=== PATIENT | male | born 1950 | race Caucasian/White ===

== ENCOUNTER 2018-01-24 16:59 | Emergency (ER) | payer MEDICARE ==
[2018-01-24 18:07] LABS: #Basophils 0.1 thou/uL (0.0-0.2); #Eosinphils 0.1 thou/uL (0.0-0.7); #Lymphocytes 1.5 thou/uL (1.20-3.40); #Monocytes 0.7 thou/uL (0.11-0.59); #Neutrophils 3.9 thou/uL (1.40-6.50); %Basophils 0.8 % (0.0-1.0); %Eosinophils 2.2 % (0.0-10.0); %Monocytes 11.7 % (0.0-10.0); %Neutrophils 62.3 % (42.0-75.0); Hemoglobin 13.9 g/dL (14.0-18.0); Mean Corpuscular HGB CONC 33.9 g/dL (32.0-36.0); Mean Corpuscular Hemoglobin 30.8 pg (27.0-31.0); Mean Corpuscular Volume 90.8 fL (78.0-98.0); Platelet Count 159 thou/uL (130-400); Red Blood Cell (RBC) Count 4.53 mill/uL (4.70-6.10); White Blood Cell (WBC) Count 6.3 thou/uL (4.8-10.8)
[2018-01-24 18:24] LABS: ALT (SGPT) 11 U/L (8-55); AST (SGOT) 18 U/L (5-34); Albumin 4.2 g/dL (3.4-4.8); Alkaline Phosphatase 71 U/L (40-150); Anion Gap 13 mmol/L (10-20); BUN (Urea Nitrogen) 14 mg/dL (8.4-25.7); CK (CPK) 88 U/L (30-200); Calc. Creatinine Clearance 0 mL/min (70-130); Calcium 9.7 mg/dL (7.8-10.44); Carbon Dioxide 26 mmol/L (23-31); Chloride 103 mmol/L (98-107); Estimated GFR-MDRD 50; Globulin 2.9 g/dL (2.4-3.5); Glucose 153 mg/dL (80-115); Lipase 15 U/L (8-78); Potassium 3.8 mmol/L (3.5-5.1); Protein, Total 7.1 g/dL (5.8-8.1); Sodium 138 mmol/L (136-145)
[2018-01-24 18:27] LABS: CKMB 1.5 ng/mL (0-6.6); Troponin I Less than 0.010 ng/mL (< 0.028)
== END 2018-01-24 18:55 | disposition home or self-care (01) ==
LOC: ERS 16:59
DX: I10 Essential (primary) hypertension (principal); H91.91 Unspecified hearing loss, right ear; E11.9 Type 2 diabetes mellitus without complications; Z79.899 Other long term (current) drug therapy; Z79.82 Long term (current) use of aspirin
CPT/HCPCS: 36415; 80053; 82553; 83690; 84484; 85025; 93005

== ENCOUNTER 2019-06-05 14:55 | Emergency (ER) | payer MEDICARE ==
[2019-06-05 15:40] LABS: #Basophils 0.1 thou/uL (0.0-0.2); #Eosinphils 0.2 thou/uL (0.0-0.7); #Lymphocytes 1.9 thou/uL (1.20-3.40); #Monocytes 1.1 thou/uL (0.11-0.59); %Basophils 0.9 % (0.0-1.0); %Eosinophils 1.8 % (0.0-10.0); %Lymphocytes 20.3 % (21.0-51.0); %Monocytes 11.8 % (0.0-10.0); %Neutrophils 65.2 % (42.0-75.0); Hemoglobin 13.7 g/dL (14.0-18.0); Mean Corpuscular HGB CONC 32.3 g/dL (32.0-36.0); Platelet Count 154 thou/uL (130-400); RBC Distribution Width 12.9 % (11.5-14.5); Red Blood Cell (RBC) Count 4.55 mill/uL (4.70-6.10); White Blood Cell (WBC) Count 9.2 thou/uL (4.8-10.8)
[2019-06-05 15:58] LABS: ALT (SGPT) 10 U/L (8-55); AST (SGOT) 23 U/L (5-34); Albumin 4.1 g/dL (3.4-4.8); Alkaline Phosphatase 59 U/L (40-110); Anion Gap 15 mmol/L (10-20); BUN (Urea Nitrogen) 15 mg/dL (8.4-25.7); Bilirubin, Total 2.4 mg/dL (0.2-1.2); Calc. Creatinine Clearance 0 mL/min (70-130); Calcium 9.2 mg/dL (7.8-10.44); Carbon Dioxide 23 mmol/L (23-31); Chloride 105 mmol/L (98-107); Estimated GFR-MDRD 39; Globulin 2.4 g/dL (2.4-3.5); Glucose 156 mg/dL (83-110); Potassium 3.8 mmol/L (3.5-5.1); Protein, Total 6.5 g/dL (5.8-8.1); Sodium 139 mmol/L (136-145)
[2019-06-05] MEDS ORDERED: Fleet Enema 133 ML BOT PR SCH (16:00)
== END 2019-06-05 17:05 | disposition home or self-care (01) ==
LOC: ERS 14:55
DX: K56.41 Fecal impaction (principal); E11.9 Type 2 diabetes mellitus without complications; I10 Essential (primary) hypertension; Z79.899 Other long term (current) drug therapy
CPT/HCPCS: 36415; 80053; 82274; 85025; 99283

== ENCOUNTER 2019-06-14 12:15 | Outpatient (CLI) | payer MEDICARE ==
[2019-06-14 13:54] LABS: Anion Gap 12 mmol/L (10-20); BUN (Urea Nitrogen) 14 mg/dL (8.4-25.7); Calc. Creatinine Clearance 0 mL/min (70-130); Calcium 9.3 mg/dL (7.8-10.44); Carbon Dioxide 25 mmol/L (23-31); Chloride 104 mmol/L (98-107); Estimated GFR-MDRD 36; Glucose 131 mg/dL (83-110); Potassium 4.2 mmol/L (3.5-5.1); Sodium 137 mmol/L (136-145)
== END 2019-06-14 12:16 | disposition home or self-care (01) ==
LOC: LABBT 12:15
PROVIDERS: ATTEND Internal Medicine Cardiovascular Disease
DX: Z01.812 Encounter for preprocedural laboratory examination (principal)
CPT/HCPCS: 80048

== ENCOUNTER 2019-06-21 11:32 | Day surgery (SDC) | payer MEDICARE ==
[2019-06-14 12:52] VITALS: BMI 34.8
[~2019-06-21 11:32] MED LIST: PROPOFOL 200 MG/20 ML VIAL ONE
--- NOTE | 2019-06-21 15:51 | OP ---
DATE OF PROCEDURE: 06/21/19 SURGEON: Malik Mahoney M.D. PROCEDURE: Electrical cardioversion. Patient remained sedated after transesophageal echo. With 200 joules of synchronized energy, he retur rudolph to sinus bradycardia. Patient tolerated the procedure well.
--- NOTE | 2019-06-21 22:20 | ECHO ---
DATE OF SERVICE: 06/21/19 PREPROCEDURE DIAGNOSIS: Transesophageal echocardiogram done for precardioversion. The Anesthesiology department provided with sedation for the patient. Please see their notes for det ails. After adequate sedation was achieved, transesophageal probe was inserted into the mouth and into the esophagus. Multiplanar views were obtained. Left ventricle is normal size, normal wall thickness. Systolic function is normal. Estimated EF at 5 0-55%. Left atrium is dilated. Left atrial appendage is a large appendage with reduced velocities but no evidence of mass or thromb us. Right atrium is normal size. The interatrial septum has a small patent foramen ovale. Mostly left to right shunting. The right ventricle is normal size with normal systolic function. Aortic valve has aortic valve replacement. There is no regurgitation or stenosis. Mitral valve is structurally normal. There is moderate MR. No stenosis. There is suggestion of mild a nterior leaflet mitral valve prolapse. This is not seen on every view and is questionable. Correlate with transthoracic echo. Tricuspid valve is structurally normal. There is mild TR. Pulmonary valve is structurally normal. There is no stenosis or regurgitation. Thoracic aorta has grade II atherosclerotic disease. CONCLUSIONS: 1. Normal systolic function, EF at 50-55%. 2. Left atrial enlargement. 3. Moderate mitral regurgitation with possible mild anterior leaflet mitral valve prolapse. This is questionable. 4. Mild TR. 5. Small patent foramen ovale with mostly left to right shunting. 6. Left atrial appendage is without mass or thrombus with reduced velocities. 7. Atrial fibrillation during study.
== END 2019-06-21 15:25 | disposition home or self-care (01) ==
LOC: CCL 11:32
PROVIDERS: ATTEND Internal Medicine Cardiovascular Disease
PROC: 5A2204Z Restoration of Cardiac Rhythm, Single (ICD-10-PCS; principal; 2019-06-21)
PROC: B24BZZ4 Ultrasonography of Heart with Aorta, Transesophageal (ICD-10-PCS; 2019-06-21)
DX: I48.91 Unspecified atrial fibrillation (principal); I08.1 Rheumatic disorders of both mitral and tricuspid valves; Q21.1 Atrial septal defect; I70.0 Atherosclerosis of aorta; I13.0 Hypertensive heart and chronic kidney disease with heart failure and stage 1 through stage 4 chronic kidney disease, or unspecified chronic kidney disease; E11.22 Type 2 diabetes mellitus with diabetic chronic kidney disease; N18.3 Chronic kidney disease, stage 3 (moderate); I50.32 Chronic diastolic (congestive) heart failure; E78.5 Hyperlipidemia, unspecified; I25.10 Atherosclerotic heart disease of native coronary artery without angina pectoris; E78.00 Pure hypercholesterolemia, unspecified; Z79.01 Long term (current) use of anticoagulants; Z79.82 Long term (current) use of aspirin; Z79.84 Long term (current) use of oral hypoglycemic drugs; Z79.899 Other long term (current) drug therapy; Z95.3 Presence of xenogenic heart valve; Z90.49 Acquired absence of other specified parts of digestive tract
CPT/HCPCS: 93005; 93010; 93312; J2704

== ENCOUNTER 2019-12-29 10:36 | Observation (INO) | payer MEDICARE ==
[2019-12-29 11:03] LABS: #Basophils 0.1 thou/uL (0.0-0.2); #Eosinphils 0.2 thou/uL (0.0-0.7); #Lymphocytes 1.3 thou/uL (1.20-3.40); #Monocytes 0.9 thou/uL (0.11-0.59); #Neutrophils 4.3 thou/uL (1.40-6.50); %Basophils 0.9 % (0.0-1.0); %Eosinophils 2.8 % (0.0-10.0); %Lymphocytes 19.5 % (21.0-51.0); %Monocytes 12.7 % (0.0-10.0); Hemoglobin 12.7 g/dL (14.0-18.0); Mean Corpuscular HGB CONC 31.7 g/dL (32.0-36.0); Mean Corpuscular Volume 94.5 fL (78.0-98.0); Mean Platelet Volume 8.7 fL (7.4-10.4); Platelet Count 128 thou/uL (130-400); RBC Distribution Width 13.2 % (11.5-14.5); Red Blood Cell (RBC) Count 4.22 mill/uL (4.70-6.10); White Blood Cell (WBC) Count 6.8 thou/uL (4.8-10.8)
[2019-12-29 11:13] LABS: INR-International Normal Ratio 1.4; PTT 37.1 sec (22.9-36.1)
--- NOTE | 2019-12-29 11:18 | RAD ---
PORTABLE CHEST: Date: 12/29/2019 HISTORY: Chest pain. COMPARISON: 01/31/2017. FINDINGS: Lung baugh are clear. No infiltrate. Mild cardiomegaly with postop sternotomy change. No evidence of vascular congestion. IMPRESSION: No acute findings. POS: AGW
[2019-12-29 11:26] LABS: ALT (SGPT) 10 U/L (8-55); AST (SGOT) 20 U/L (5-34); Alkaline Phosphatase 76 U/L (40-110); Anion Gap 13 mmol/L (10-20); BUN (Urea Nitrogen) 18 mg/dL (8.4-25.7); Bilirubin, Total 1.5 mg/dL (0.2-1.2); CK (CPK) 103 U/L (30-200); Calc. Creatinine Clearance 0 mL/min (70-130); Carbon Dioxide 20 mmol/L (23-31); Chloride 106 mmol/L (98-107); Estimated GFR-MDRD 35; Globulin 2.9 g/dL (2.4-3.5); Glucose 135 mg/dL (83-110); Potassium 4.3 mmol/L (3.5-5.1); Protein, Total 6.9 g/dL (5.8-8.1); Sodium 135 mmol/L (136-145)
--- NOTE | 2019-12-29 14:43 | HP ---
PRIMARY CARE PHYSICIAN: [facility] Call admission. REASON FOR ADMISSION: Chest pain. HISTORY OF PRESENT ILLNESS: This is a 69-year-old male, who has underlying history of chronic atrial fibrillation on chronic anticoagulation therapy as well as history of aortic valve replacement, who presented to emergency room with a complaint of vague chest discomfort. The patient reports that he has a monitor at home and he was checking his rhythm and he noted that his pulse was running very faster at home. He was not having any symptoms at that time, and subsequently, he noticed that his heart rate was variable. He was also feeling mild shortness of breath and chest congestion. This episode happened when he was getting ready to go back to work. The patient was not feeling well and that is why he decided to come to emergency room. The patient does have a runny nose and nasal congestion, but he denies any COVID exposure or any exposure with sick people. He has no concerns with coronavirus infection. He denies any fever or chills. He denies any orthopnea or PND, but the patient reports that his left lower extremity is more swollen than the right. He denies any pleuritic chest pain, dizziness or syncope. In the emergency room, the patient had EKG, which showed slow ventricular response with AFib. He was hypertensive initially. Routine blood test in the emergency room was negative for any elevated troponin. The patient was admitted for observation to rule out any coronary syndrome. REVIEW OF SYSTEMS: CONSTITUTIONAL: Negative for weight loss or gain, ability to conduct usual activities. SKIN: Negative for rash, itching. EYES: Negative for double vision, pain. ENT/MOUTH: Negative for nose bleeding, neck stiffness, pain, tenderness. CARDIOVASCULAR: Negative for palpitations, dyspnea on exertion, orthopnea. RESPIRATORY: Negative for shortness of breath, wheezing, cough, hemoptysis, fever or night sweats. GASTROINTESTINAL: Negative for poor appetite, abdominal pain, heartburn, nausea, vomiting, constipation, or diarrhea. GENITOURINARY: Negative for urgency, frequency, dysuria, nocturia. MUSCULOSKELETAL: Negative for pain, swelling. NEUROLOGIC/PSYCHIATRIC: Negative for anxiety, depression. ALLERGY/IMMUNOLOGIC: Negative for skin rash, bleeding tendency. Please see my HPI for pertinent positives and negatives. All other review of systems reviewed and negative except as mentioned in HPI. PAST MEDICAL HISTORY: 1. Valvular heart disease with aortic regurgitation, required aortic valve replacement. 2. Diabetes, type 2. 3. Hypertension. 4. Chronic atrial fibrillation. 5. Chronic anticoagulation. 6. History of colon cancer, treated with surgery. 7. Obesity. PAST SURGICAL HISTORY: Colon resection in 2012 and aortic valve replacement in 2017. PAST PSYCHIATRIC HISTORY: Reviewed and negative. SOCIAL HISTORY: The patient is . He lives at home with his . No history of tobacco, alcohol or illicit drug abuse. FAMILY HISTORY: Positive for coronary artery disease to his father, but his father was very old when he had heart attack. ALLERGIES: NO KNOWN DRUG ALLERGIES. CURRENT HOME MEDICATIONS: 1. Aspirin 81 mg daily. 2. Metoprolol 12.5 mg twice daily. 3. Lisinopril 10 mg p.o. daily. 4. Eliquis 5 mg p.o. b.i.d. 5. Hydralazine 100 mg twice daily. 6. Amlodipine 2.5 mg daily. 7. Multaq 400 mg twice daily. 8. Lasix 20 mg every other day. 9. Lipitor 40 mg p.o. daily. 10. MiraLAX 17 g daily as needed. 11. Actos 45 mg p.o. daily. EMERGENCY ROOM COURSE: Reviewed. PHYSICAL EXAMINATION: VITAL SIGNS: Currently, blood pressure 142/57, pulse 54, respiratory rate 18, temperature 98.7, saturation 97% on room air, and weight 113.4 kg. GENERAL: The patient is currently alert and awake, no acute distress. HEENT: Head; normocephalic and atraumatic. NECK: Supple. No JVD. No thyromegaly. No meningeal signs of irritation. LUNGS: Grossly clear to auscultation without any obvious rhonchi or rales. CARDIAC: S1 and S2 appears irregular, slow ventricular response, and biological heart valve sounds noted. ABDOMEN: Obesity noted, bowel sounds present, nontender, nondistended. No organomegaly. No mass. EXTREMITIES: Bilateral lower extremity pitting edema noted, pedal edema more on the left foot. NEUROLOGIC: Nonfocal examination. SKIN: No skin rash. HEMATOLOGICAL SYSTEM: No lymphadenopathy. SIGNIFICANT LABORATORY DATA: CBC; WBC 6.8, hemoglobin 12.7, and platelet 128. INR 1.4. BMP; sodium 135, potassium 4.3, chloride 106, carbon dioxide 20, BUN 18, creatinine 1.92, glucose 135, and calcium 9.0. LFT; AST 20, ALT 10, alkaline phosphatase 76, and albumin 4.0. Troponin I less than 0.010. DIAGNOSTIC DATA: EKG showing atrial fibrillation with slow ventricular response. Chest x-ray based on my review, no acute cardiopulmonary process. ASSESSMENT/PLAN: 1. Chest discomfort. I am suspecting the patient has mild upper respiratory infection and he has congestion that contributing to his chest discomfort. He has a variable heart rate at home. Currently, EKG is not showing any acute ischemic changes and troponin is negative. The patient is requesting cardiology consultation with Dr. Mahoney. We will do serial cardiac enzymes x3. Cardiology will be consulted and echocardiography will be obtained. We will monitor on telemetry floor and recheck lipid profile for risk stratification tomorrow. 2. History of valvular heart disease with aortic valve replacement with biological valve. Echocardiography will be obtained to see status of valve as well as structural and functional problem. 3. Bilateral lower extremity edema. The patient has more edema, pitting in nature, the patient also has underlying valvular heart disease. I am suspecting diastolic dysfunction. We will check BNP. We will give him Lasix 40 mg IV b.i.d. 4. Chronic atrial fibrillation with slow ventricular response. Continue the patient's home medication. Cardiology has been consulted. Continue chronic anticoagulation therapy. 5. Chronic kidney disease, stage 3. Monitor renal function. We will repeat BMP tomorrow. 6. Diabetes type 2. Continue insulin as per sliding scale protocol. We will hold on Actos therapy. 7. Hypertension. Continue lisinopril 10 mg p.o. daily, hydralazine 100 mg twice daily, and amlodipine 2.5 mg p.o. daily. 8. Dyslipidemia. Check lipid profile tomorrow and continue Lipitor 40 mg p.o. at bedtime. 9. Deep venous thrombosis prophylaxis. The patient is already on chronic anticoagulation therapy. 10. Gastrointestinal prophylaxis with Protonix 40 mg p.o. daily. CODE STATUS: The patient is full code. The patient's is surrogate decision maker. DISPOSITION PLAN: Based on clinical course, we are expecting the patient's stay in hospital 24 to 48 hours. Plan of care discussed with the patient and in detail. Job ID: [id number]
[2019-12-29] MEDS ORDERED: Bisacodyl 10 MG SUPP PR PRN (16:08)
[2019-12-29] MEDS ORDERED: Dextrose 50% Abboject 50 ML SYRINGE SLOW IVP PRN (16:08)
[2019-12-29] MEDS ORDERED: Nitroglycerin 0.4 MG TAB (25 Tab Bottle) SL PRN (16:08)
[2019-12-29] MEDS ORDERED: Loperamide HCl 2 MG CAP PO PRN (16:08)
[2019-12-29] MEDS ORDERED: Senokot S 8.6-50 MG TAB PO PRN (16:08)
[2019-12-29] MEDS ORDERED: Calcium Carbonate 500 MG ChewTAB PO PRN (16:08)
[2019-12-29] MEDS ORDERED: HumaLOG 300 UNITS/3 ML VIAL SC PRN ×2 (16:08)
[2019-12-29] MEDS ORDERED: Metoclopramide HCl 10 MG/2 ML VIAL IVP PRN (16:08)
[2019-12-29] MEDS ORDERED: Cepastat Lozenges 1 LOZ PO PRN (16:08)
[2019-12-29] MEDS ORDERED: Acetaminophen 325 MG TAB PO PRN (16:08)
[2019-12-29] MEDS ORDERED: Sodium Chloride 0.65% Nasal 44 ML BOT EA NARE PRN (16:08)
[2019-12-29] MEDS ORDERED: Diabetic Tussin 200 MG/10 ML UDCUP PO PRN (16:08)
[2019-12-29] MEDS ORDERED: hydrALAZINE 20 MG/ML VIAL SLOW IVP PRN (16:08)
[2019-12-29] MEDS ORDERED: Dextrose 5% in Water 1,000 ML IV PRN (16:08)
[2019-12-29] MEDS ORDERED: HYDROcodone/Acetaminophen 5/325 mg Tablet PO PRN (16:08)
[2019-12-29] MEDS ORDERED: Loratadine 10 MG TAB PO PRN (16:08)
[2019-12-29] MEDS ORDERED: Zolpidem Tartrate 5 MG TAB PO PRN (16:08)
[2019-12-29 16:15] VITALS: BMI 32.3
[2019-12-29] MEDS: Dronedarone HCl 400 MG TAB PO SCH (16:54)
[2019-12-29 17:15] LABS: Troponin I Less than 0.010 ng/mL (< 0.028)
--- NOTE | 2019-12-29 18:35 | CON ---
DATE OF CONSULTATION: 12/29/2019 PRIMARY AREA SUPERVISOR: Dr. Malik Mahoney. HISTORY OF PRESENT ILLNESS: Mr. Lizarraga is a pleasant 69-year-old white gentleman, who comes to the hospital for evaluation of elevated heart rate and discomfort on his mid upper sternal area. He is a patient of Dr. Mahoney. He underwent a bioprosthetic aortic valve replacement about [address] [facility] [place] [place] in [place]. This is in the setting of severe aortic stenosis. At that time, he had a heart catheterization that showed a severe diagonal lesion. This was treated medically as it was too small. Otherwise, he had mild disease on the LAD about 20% stenosis, this was in 2017. He comes in because this morning he was at work, he noticed right shoulder pain. He thinks it is related to some batteries he had to carry yesterday which were very heavy, but he felt a discomfort in the upper chest and checked his O2 saturation and noted that his heart rate was 109. His heart rate has been in the upper 50s since he had cardioversion last year. He had this cardioversion secondary to atrial fibrillation. On my evaluation, Mr. Lizarraga is doing well. Denies any chest pain, tightness, pressure. No shortness of breath. PAST MEDICAL HISTORY: 1. Severe aortic stenosis, status post bioprosthetic aortic valve replacement. 2. Type 2 diabetes. 3. Hypertension. 4. Paroxysmal atrial fibrillation. He has remained in sinus since his cardioversion last year. 5. Chronic anticoagulation with Eliquis. 6. Colon cancer, status post resection. PAST SURGICAL HISTORY: 1. Colon resection in 2011. 2. Bioprosthetic aortic valve replacement in 2017 in [facility]. SOCIAL HISTORY: No alcohol, tobacco, or drugs. FAMILY HISTORY: Father with coronary artery disease. ALLERGIES: NO KNOWN DRUG ALLERGIES. OUTPATIENT MEDICATIONS: 1. Aspirin 81 a day. 2. Metoprolol 12.5 mg b.i.d. 3. Lisinopril 10 mg a day. 4. Eliquis 5 mg b.i.d. 5. Hydralazine 100 mg twice a day. 6. Amlodipine 2.5 mg a day. 7. Multaq 400 mg twice a day. 8. Lasix 20 mg a day. 9. Lipitor 40 mg a day. 10. MiraLAX as needed. 11. Actos 45 mg a day. REVIEW OF SYSTEMS: A 12-point review of systems was done and was found to be negative other than stated in the history of present illness. PHYSICAL EXAMINATION: VITAL SIGNS: Temperature 99.0, pulse of 49, respiratory rate 17, sat 97% on room air, blood pressure 151/63. GENERAL: Awake, alert, and oriented x3, in no distress. HEENT: Normocephalic and atraumatic. NECK: Supple. LUNGS: Clear. CARDIOVASCULAR: S1, S2. Heart rate in the mid 50s. ABDOMEN: Soft. Positive bowel sounds. EXTREMITIES: Trace edema. SKIN: Warm and dry. LABORATORY DATA: Laboratory work was reviewed. White count of 6, hemoglobin of 12.7, hematocrit 39, platelet count of 128. His hemoglobin is at its baseline between 11 and 13. Coags were reviewed. Chemistries were unremarkable except for creatinine of 1.92, which is pretty much close to his baseline between 1.7 and 1.88. He was 1.92. Troponin is undetectable x2. Total bilirubin was 1.5 with normal AST, ALT, and alkaline phosphatase. Glucose was 135, GFR was 35. EKG was reviewed, sinus bradycardia. ASSESSMENT AND PLAN: 1. Episode of tachycardia. 2. Episode of upper midsternal discomfort, atypical. 3. Severe coronary artery disease and a small diagonal artery which is not amenable to any revascularization, treated medically. 4. Status post bioprosthetic aortic valve replacement. PLAN: 1. Continue to rule out. If he rules out with negative troponins, I do not think there is a need to further risk stratify having had a pretty unremarkable heart catheterization just 3 years ago. I do not think a stress test would add anything in this setting. 2. If telemetry does not show any runs of atrial fibrillation, he may need an outpatient monitor to assess for those episodes of high heart rates. 3. Otherwise continue Multaq and Eliquis for full anticoagulation for stroke prophylaxis and atrial fibrillation prophylaxis as well. Thank you for letting us participate in the care of your patient. Dr. Mahoney , his primary spray painting machine operator, will follow up in the morning. Echo pending. Job ID: [id number] MTDD
[2019-12-29] MEDS: Metoprolol Tartrate 25 MG TAB PO SCH (20:21)
[2019-12-29] MEDS: Apixaban 5 MG TAB PO SCH (20:22)
[2019-12-29] MEDS: hydrALAZINE 25 MG TAB PO SCH (20:23)
[2019-12-29 20:58] LABS: Troponin I 0.011 ng/mL (< 0.028)
[2019-12-30 05:28] LABS: Anion Gap 10 mmol/L (10-20); BUN (Urea Nitrogen) 17 mg/dL (8.4-25.7); Calc. Creatinine Clearance 55 mL/min (70-130); Calcium 8.6 mg/dL (7.8-10.44); Carbon Dioxide 24 mmol/L (23-31); Cardiac Risk 2.3 (Less than 4.5); Chloride 108 mmol/L (98-107); Cholesterol 81 mg/dl (< 200 Desired); Estimated GFR-MDRD 38; Glucose 81 mg/dL (83-110); HDL Cholesterol 36 mg/dL (>60 Neg Risk); LDL Cholesterol, Calculated 37 mg/dL; Potassium 4.2 mmol/L (3.5-5.1); Sodium 138 mmol/L (136-145); Triglycerides 41 mg/dL (Less than 150)
[2019-12-30] MEDS ORDERED: Furosemide 40 MG/4 ML VIAL SLOW IVP SCH (06:00)
[2019-12-30 06:16] LABS: Band 1 % (5-11); Eosinophils 4 % (0-10); Hemoglobin 11.5 g/dL (14.0-18.0); Lymphocytes 35 % (21-51); MDiff Complete? YES; Mean Corpuscular Hemoglobin 31.3 pg (27.0-31.0); Mean Corpuscular Volume 92.1 fL (78.0-98.0); Mean Platelet Volume 8.7 fL (7.4-10.4); Monocytes 7 % (0-10); Neutrophil 53 % (42-75); Platelet Count 114 thou/uL (130-400); Platelet Morphology Comment Appears Decreased; RBC Distribution Width 13.2 % (11.5-14.5); Red Blood Cell (RBC) Count 3.67 mill/uL (4.70-6.10)
[2019-12-30 07:53] VITALS: BP 170/70; TEMP 98.4
[2019-12-30] MEDS ORDERED: Lisinopril 10 MG TAB PO SCH (09:00)
[2019-12-30] MEDS ORDERED: Amlodipine 5 MG TAB PO SCH (09:00)
[2019-12-30] MEDS ORDERED: Aspirin Chewable 81 MG TAB PO SCH (09:00)
[2019-12-30] MEDS: hydrALAZINE 25 MG TAB PO SCH (09:43)
[2019-12-30] MEDS: Apixaban 5 MG TAB PO SCH (09:49)
[2019-12-30] MEDS: Dronedarone HCl 400 MG TAB PO SCH (09:50)
[2019-12-30 09:51] LABS: Hemoglobin 12.4 g/dL (14.0-18.0); Platelet Count 130 thou/uL (130-400)
[2019-12-30] MEDS: Metoprolol Tartrate 25 MG TAB PO SCH (09:51)
--- NOTE | 2019-12-30 10:16 | DIS ---
DATE OF ADMISSION: 12/29/2019 DATE OF DISCHARGE: 12/30/2019 PRIMARY CARE PHYSICIAN: Hollie Grimaldo. DISCHARGE DISPOSITION: Home. PRIMARY DISCHARGE DIAGNOSIS: Chest pain ruled out acute coronary syndrome. SECONDARY DISCHARGE DIAGNOSES: 1. Valvular heart disease with aortic regurgitation, required aortic valve replacement. 2. Diabetes type 2. 3. Hypertension. 4. Chronic atrial fibrillation. 5. Chronic anticoagulation. 6. History of colon cancer treated with surgery. 7. Obesity with BMI 32. PRIMARY PROCEDURE/OPERATION: None. RADIOLOGICAL INVESTIGATION: Chest x-ray showed no acute cardiopulmonary process. Echocardiography. SIGNIFICANT LABORATORY DATA: WBC 5.0, hemoglobin 11.6, platelet 114. INR 1.4. Sodium 138, potassium 4.2, chloride 108, BUN 17, creatinine 1.77, calcium 8.6, LDL 37. Cardiac enzymes negative x3. DISCHARGE MEDICATIONS: 1. Lasix 20 mg every other day. 2. Amlodipine 2.5 mg p.o. daily. 3. Eliquis 5 mg p.o. b.i.d. 4. Aspirin 81 mg p.o. daily. 5. Lipitor 40 mg p.o. at bedtime. 6. Cetirizine 10 mg daily. 7. Multaq 400 mg p.o. b.i.d. 8. Hydralazine 100 mg p.o. b.i.d. 9. Lisinopril 10 mg daily. 10. Metoprolol tartrate 12.5 mg p.o. b.i.d. 11. Actos 45 mg p.o. daily. CONTRAINDICATION: None. CODE STATUS: Full code. INPATIENT DERRICK HAND: Cardiology group was consulted. TEST RESULT PENDING ON DISCHARGE: None. DISCHARGE PLAN: Post hospital, the patient will follow up with primary care physician in 1 week and patient will follow up with Cardiology as instructed. HOSPITAL COURSE: A 69-year-old male with above-mentioned medical problem, who was admitted by me yesterday. Please see my HPI for more details. The patient was having no real chest pain, but he was feeling mild chest discomfort and he was experiencing that his atrial fibrillation was faster in the 110 range. When he presented to emergency room, he was having atrial fibrillation with a slow ventricular response. His chest x-ray was unremarkable. His troponins were negative. We observed him in the hospital for 24 hours. Serial cardiac enzymes were negative. He was not symptomatic while in hospital. We consulted Cardiology and Cardiology cleared him for discharge. As the patient also had lower extremity edema and that is why on discharge we added Lasix 20 mg p.o. b.i.d. Echocardiography was obtained, but result is pending. The patient will continue all his previous medication. PHYSICAL EXAMINATION: I have seen and examined the patient at bedside today. The patient is completely asymptomatic. VITAL SIGNS: Currently, temperature 98.4, pulse 51, respiratory rate 14, saturation 96% on room air, blood pressure 129/86. GENERAL: The patient is currently alert, awake, no acute distress. HEENT: Head, normocephalic and atraumatic. NECK: Supple. No JVD. No meningeal signs of irritation. LUNGS: Clear to auscultation without any rhonchi or rales. CARDIAC: S1 and S2 irregular, no murmur, no gallop, no rub. ABDOMEN: Soft, bowel sounds present. Nontender. Nondistended. No organomegaly. No mass. EXTREMITIES: Trace edema noted, good distal pulsation. NEUROLOGIC: Nonfocal examination. The patient is medically stable for discharge later on today. Job ID: [id number]
--- NOTE | 2019-12-30 10:45 | PDOC.HOSPP ---
- Subjective Encounter Date: 12/30/19 Encounter Time: 09:45 Subjective: Patient seen and examined. No new complaints. No overnight events - Objective Vital Signs & Weight: Vital Signs (12 hours) Temp Pulse Resp BP Pulse Ox 12/30/19 09:45 51 L 12/30/19 09:43 51 L 12/30/19 07:51 98.4 F 51 L 14 170/70 H 96 12/30/19 03:38 98.2 F 47 L 14 97 Weight Weight 225 lb 4.8 oz Result Diagrams: 12/30/19 09:38 12/30/19 09:38 Additional Labs: Accuchecks 12/30/19 12/29/19 12/29/19 06:04 20:47 17:17 POC Glucose 104 153 H 163 H Radiology Reviewed by me: Yes EKG Reviewed by me: Yes Hospitalist ROS - Review of Systems ENT: denies: ear pain, ear discharge, nose pain, nose discharge, nose congestion , mouth pain, mouth swelling, throat pain, throat swelling, other Respiratory: denies: cough, dry, shortness of breath, hemoptysis, SOB with excertion, pleuritic pain, sputum, wheezing, other Cardiovascular: denies: chest pain, palpitations, orthopnea, paroxysmal noc. dyspnea, edema, light headedness, other Gastrointestinal: denies: nausea, vomiting, abdominal pain, diarrhea, constipation, melena, hematochezia, other Genitourinary: denies: dysuria, frequency, incontinence, hematuria, retention, other Musculoskeletal: denies: neck pain, shoulder pain, arm pain, back pain, hand pain, leg pain, foot pain, other - Medication Medications: Active Medications Generic Name Dose Route Start Last Admin Trade Name Freq PRN Reason Stop Dose Admin Amlodipine Besylate 2.5 mg 12/30/19 09:00 12/30/19 09:45 Norvasc PO 2.5 mg DAILY LANA Administration Apixaban 5 mg 12/29/19 21:00 12/30/19 09:49 Eliquis PO 5 mg BID LANA Administration Aspirin 81 mg 12/30/19 09:00 12/30/19 09:49 Aspirin Chewable PO 81 mg DAILY LANA Administration Dronedarone 400 mg 12/29/19 17:00 12/30/19 09:50 Multaq PO 400 mg BID-WM LANA Administration Furosemide 40 mg 12/30/19 06:00 12/30/19 05:58 Lasix SLOW IVP 40 mg 0600,1400 LANA Administration Hydralazine HCl 100 mg 12/29/19 21:00 12/30/19 09:43 Apresoline PO 100 mg BID LANA Administration Lisinopril 10 mg 12/30/19 09:00 12/30/19 09:44 Zestril PO 10 mg DAILY LANA Administration Metoprolol Tartrate 12.5 mg 12/29/19 21:00 12/30/19 09:51 Lopressor PO 12.5 mg BID LANA Administration - Exam General Appearance: NAD, awake alert Eye: PERRL, anicteric sclera ENT: normocephalic atraumatic, no oropharyngeal lesions Neck: supple, symmetric, no JVD Heart: no murmur, no gallops, irregular Respiratory: CTAB, no wheezes, no rales, no ronchi Gastrointestinal: soft, non-tender, non-distended Extremities: no cyanosis, no clubbing Skin: normal turgor, no lesions Neurological: cranial nerve grossly intact, no focal deficits Musculoskeletal: normal tone, normal strength Psychiatric: normal affect, normal behavior Hosp A/P (1) Chest pain Code(s): R07.9 - CHEST PAIN, UNSPECIFIED Status: Acute (2) Diabetes type 2, controlled Code(s): E11.9 - TYPE 2 DIABETES MELLITUS WITHOUT COMPLICATIONS Status: Chronic (3) Dyslipidemia Code(s): E78.5 - HYPERLIPIDEMIA, UNSPECIFIED Status: Chronic (4) Hypertension Code(s): I10 - ESSENTIAL (PRIMARY) HYPERTENSION Status: Chronic (5) Obesity (BMI 30-39.9) Code(s): E66.9 - OBESITY, UNSPECIFIED Status: Chronic (6) Atrial fibrillation Code(s): I48.91 - UNSPECIFIED ATRIAL FIBRILLATION Status: Chronic - Plan old records reviewed/req plan for discharge after all ordered test done and cardio clears see discharge summery acs ruled out medication reviewed continue symptomatic care supportive care hospital course reviewed
== END 2019-12-30 11:50 | disposition home or self-care (01) ==
LOC: ERS 10:36 → 2NO 14:02 → INTOOBSV 14:02
PROVIDERS: ADMIT Internal Medicine; ATTEND Internal Medicine
DX: R07.89 Other chest pain (principal); I35.1 Nonrheumatic aortic (valve) insufficiency; I12.9 Hypertensive chronic kidney disease with stage 1 through stage 4 chronic kidney disease, or unspecified chronic kidney disease; E11.22 Type 2 diabetes mellitus with diabetic chronic kidney disease; N18.3 Chronic kidney disease, stage 3 (moderate); I48.0 Paroxysmal atrial fibrillation; R60.0 Localized edema; E78.5 Hyperlipidemia, unspecified; I25.10 Atherosclerotic heart disease of native coronary artery without angina pectoris; E66.9 Obesity, unspecified; Z68.32 Body mass index [BMI] 32.0-32.9, adult; Z85.038 Personal history of other malignant neoplasm of large intestine; Z79.01 Long term (current) use of anticoagulants; Z79.82 Long term (current) use of aspirin; Z79.84 Long term (current) use of oral hypoglycemic drugs; Z79.899 Other long term (current) drug therapy; Z90.49 Acquired absence of other specified parts of digestive tract; Z95.2 Presence of prosthetic heart valve
CPT/HCPCS: 71045; 80048; 80053; 80061; 82550; 82565; 82962 ×2; 84484 ×2; 85014; 85018; 85025 ×2; 85049; 85610; 85730; 93005; 96374; G0378 ×3; 36415; 36416; J1940

== ENCOUNTER 2020-03-29 17:35 | Emergency (ER) | payer MEDICARE, OTHER ==
[2020-03-29 18:26] LABS: #Basophils 0.1 thou/uL (0.0-0.2); #Eosinphils 0.2 thou/uL (0.0-0.7); #Lymphocytes 1.3 thou/uL (1.20-3.40); #Monocytes 0.8 thou/uL (0.11-0.59); #Neutrophils 3.1 thou/uL (1.40-6.50); %Basophils 1.1 % (0.0-1.0); %Eosinophils 4.2 % (0.0-10.0); %Monocytes 14.3 % (0.0-10.0); %Neutrophils 56.3 % (42.0-75.0); Hemoglobin 10.3 g/dL (14.0-18.0); Mean Corpuscular HGB CONC 33.4 g/dL (32.0-36.0); Mean Platelet Volume 8.7 fL (7.4-10.4); Platelet Count 131 thou/uL (130-400); RBC Distribution Width 13.6 % (11.5-14.5); Red Blood Cell (RBC) Count 3.31 mill/uL (4.70-6.10); White Blood Cell (WBC) Count 5.6 thou/uL (4.8-10.8)
[2020-03-29 18:44] LABS: ALT (SGPT) 11 U/L (8-55); AST (SGOT) 28 U/L (5-34); Albumin 3.9 g/dL (3.4-4.8); Alkaline Phosphatase 76 U/L (40-110); Anion Gap 16 mmol/L (10-20); BUN (Urea Nitrogen) 42 mg/dL (8.4-25.7); Bilirubin, Total 1.1 mg/dL (0.2-1.2); Calc. Creatinine Clearance 0 mL/min (70-130); Calcium 8.5 mg/dL (7.8-10.44); Carbon Dioxide 20 mmol/L (23-31); Chloride 104 mmol/L (98-107); Estimated GFR-MDRD 21; Globulin 2.7 g/dL (2.4-3.5); Glucose 137 mg/dL (83-110); Lipase 40 U/L (8-78); Potassium 4.6 mmol/L (3.5-5.1); Protein, Total 6.6 g/dL (5.8-8.1); Sodium 135 mmol/L (136-145)
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
[2020-03-29] MEDS ORDERED: Bacitracin 1 PK ONE (19:50)
== END 2020-03-29 20:10 | disposition home or self-care (01) ==
LOC: ERS 17:35
DX: S51.811A Laceration without foreign body of right forearm, initial encounter (principal); S20.219A Contusion of unspecified front wall of thorax, initial encounter; E11.9 Type 2 diabetes mellitus without complications; I10 Essential (primary) hypertension; Z79.899 Other long term (current) drug therapy; Z79.82 Long term (current) use of aspirin; X58.XXXA Exposure to other specified factors, initial encounter
CPT/HCPCS: 36415; 70450; 71250; 72125; 74177; 80053; 83690; 84484; 85025; 93005

== ENCOUNTER 2021-04-09 10:46 | Emergency (ER) | payer MEDICARE ==
[2021-04-09 20:14] LABS: SARS-CoV-2 PCR by NAA Not Detected (NotDetected)
== END 2021-04-09 12:33 | disposition home or self-care (01) ==
LOC: ERS 10:46
DX: R50.9 Fever, unspecified (principal); Z20.822 Contact with and (suspected) exposure to COVID-19; E11.9 Type 2 diabetes mellitus without complications; I10 Essential (primary) hypertension
CPT/HCPCS: 71045; U0003; U0005

== ENCOUNTER 2021-04-29 10:07 | Emergency (ER) | payer MEDICARE ==
[~2021-04-29 10:07] MED LIST changes: +Iopamidol-370 76% 500 ML 1 ML ONE; -PROPOFOL 200 MG/20 ML VIAL ONE
[2021-04-29 11:06] LABS: #Lymphocytes 0.7 thou/uL (1.20-3.40); #Neutrophils 7.3 thou/uL (1.40-6.50); %Basophils 0.3 % (0.0-1.0); %Eosinophils 0.4 % (0.0-10.0); %Lymphocytes 7.6 % (21.0-51.0); %Monocytes 10.8 % (0.0-10.0); %Neutrophils 80.8 % (42.0-75.0); Hemoglobin 13.3 g/dL (14.0-18.0); Mean Corpuscular HGB CONC 32.1 g/dL (32.0-36.0); Mean Corpuscular Hemoglobin 27.5 pg (27.0-31.0); Mean Corpuscular Volume 85.9 fL (78.0-98.0); Platelet Count 166 thou/uL (130-400); RBC Distribution Width 13.2 % (11.5-14.5); Red Blood Cell (RBC) Count 4.83 mill/uL (4.70-6.10)
[2021-04-29 11:31] LABS: Bilirubin Negative (Negative); Blood, Urine Negative (Negative); Clarity Clear (Clear); Glucose, Urine (Dipstick) Normal (Negative); Ketone, Urine 20 mg/dL (Negative); Leukocyte 250 Leu/uL (Negative); Nitrite Negative (Negative); Protein, Urine (Dipstick) 30 mg/dL (Neg-Trace); RBC/HPF 0-3 HPF (0-3); Specific Gravity, Urine 1.024 (1.002-1.036); Squamous Epithelial 0-3 HPF (0-3); Urobilinogen 3 mg/dL (Less than 2); pH, Urine 5.5 (5.0-9.0)
[2021-04-29 11:35] LABS: Bacteria/HPF Rare-Few HPF (None Seen)
[2021-04-29 11:45] LABS: ALT (SGPT) 16 U/L (8-55); AST (SGOT) 24 U/L (5-34); Albumin 3.4 g/dL (3.4-4.8); Alkaline Phosphatase 104 U/L (40-110); Anion Gap 13 mmol/L (10-20); BUN (Urea Nitrogen) 13 mg/dL (8.4-25.7); Bilirubin, Total 2.2 mg/dL (0.2-1.2); Calc. Creatinine Clearance 0 mL/min (70-130); Calcium 8.7 mg/dL (7.8-10.44); Carbon Dioxide 27 mmol/L (23-31); Chloride 100 mmol/L (98-107); Globulin 2.9 g/dL (2.4-3.5); Glucose 159 mg/dL (83-110); Potassium 3.1 mmol/L (3.5-5.1); Protein, Total 6.3 g/dL (5.8-8.1); Sodium 137 mmol/L (136-145)
[2021-04-29 12:05] LABS: Magnesium 1.7 mg/dL (1.6-2.6)
== END 2021-04-29 14:57 | disposition home or self-care (01) ==
LOC: ERS 10:07
DX: E87.6 Hypokalemia (principal); R82.71 Bacteriuria; R50.9 Fever, unspecified; I48.91 Unspecified atrial fibrillation; E11.9 Type 2 diabetes mellitus without complications; I10 Essential (primary) hypertension; Z85.038 Personal history of other malignant neoplasm of large intestine
CPT/HCPCS: 71275; 80053; 81003; 81015; 83735; 85025; 87040; 93005

== ENCOUNTER 2021-05-13 12:20 | Inpatient (IN) | payer MEDICARE ==
[~2021-05-13 12:20] MED LIST changes: +Heparin 1,000 UNITS/ML VIAL ONE
[2021-05-13 14:21] LABS: #Lymphocytes 0.7 thou/uL (1.20-3.40); #Monocytes 0.8 thou/uL (0.11-0.59); #Neutrophils 8.5 thou/uL (1.40-6.50); %Eosinophils 0.1 % (0.0-10.0); %Lymphocytes 7.2 % (21.0-51.0); %Monocytes 8.2 % (0.0-10.0); %Neutrophils 84.5 % (42.0-75.0); Hemoglobin 12.6 g/dL (14.0-18.0); Mean Corpuscular HGB CONC 33.8 g/dL (32.0-36.0); Mean Corpuscular Hemoglobin 29.6 pg (27.0-31.0); Mean Corpuscular Volume 87.4 fL (78.0-98.0); Mean Platelet Volume 7.5 fL (7.4-10.4); Platelet Count 192 thou/uL (130-400); RBC Distribution Width 14.1 % (11.5-14.5); Red Blood Cell (RBC) Count 4.28 mill/uL (4.70-6.10)
[2021-05-13 14:23] LABS: Bacteria/HPF None Seen HPF (None Seen); Bilirubin Negative (Negative); Blood, Urine Negative (Negative); Clarity Clear (Clear); Glucose, Urine (Dipstick) Normal (Negative); Ketone, Urine Negative (Negative); Leukocyte 500 Leu/uL (Negative); Nitrite Negative (Negative); Protein, Urine (Dipstick) 10 mg/dL (Neg-Trace); Specific Gravity, Urine 1.016 (1.002-1.036); Squamous Epithelial 0-3 HPF (0-3); Urobilinogen Normal mg/dL (Less than 2); pH, Urine 5.5 (5.0-9.0)
[2021-05-13 14:43] LABS: ALT (SGPT) 13 U/L (8-55); AST (SGOT) 19 U/L (5-34); Albumin 3.5 g/dL (3.4-4.8); Alkaline Phosphatase 104 U/L (40-110); Anion Gap 15 mmol/L (10-20); BUN (Urea Nitrogen) 12 mg/dL (8.4-25.7); Bilirubin, Total 1.4 mg/dL (0.2-1.2); Calc. Creatinine Clearance 0 mL/min (70-130); Carbon Dioxide 25 mmol/L (23-31); Chloride 100 mmol/L (98-107); Globulin 3.1 g/dL (2.4-3.5); Glucose 158 mg/dL (83-110); Potassium 3.7 mmol/L (3.5-5.1); Protein, Total 6.6 g/dL (5.8-8.1); Sodium 136 mmol/L (136-145)
[2021-05-13 15:10] LABS: SARS-CoV-2 NAA Rapid Test Not Detected (NotDetected)
[2021-05-13] MEDS ORDERED: Acetaminophen 500 MG TAB ONE (15:13)
[2021-05-13] MEDS ORDERED: cefTRIAXone\\ROCEPHIN 2 GM VIAL ONE (15:13)
[2021-05-13 18:17] LABS: Lactic Acid 1.7 mmol/L (0.5-2.2)
[2021-05-13] MEDS ORDERED: Guaifenesin DM 100-10/5 ML UDCUP PO PRN (18:24)
[2021-05-13] MEDS ORDERED: Bisacodyl 10 MG SUPP PR PRN (18:24)
[2021-05-13] MEDS ORDERED: Calcium Carbonate 500 MG ChewTAB PO PRN (18:24)
[2021-05-13] MEDS ORDERED: Ondansetron PF 4 MG/2 ML Vial IVP PRN (18:24)
[2021-05-13] MEDS ORDERED: Senokot S 8.6-50 MG TAB PO PRN (18:24)
[2021-05-13 18:54] LABS: #Lymphocytes 0.8 thou/uL (1.20-3.40); #Neutrophils 7.8 thou/uL (1.40-6.50); %Basophils 0.3 % (0.0-1.0); %Eosinophils 0.1 % (0.0-10.0); %Lymphocytes 8.6 % (21.0-51.0); %Monocytes 10.4 % (0.0-10.0); %Neutrophils 80.5 % (42.0-75.0); Hemoglobin 12.5 g/dL (14.0-18.0); Mean Corpuscular HGB CONC 34.6 g/dL (32.0-36.0); Mean Corpuscular Volume 86.8 fL (78.0-98.0); Mean Platelet Volume 7.3 fL (7.4-10.4); Platelet Count 176 thou/uL (130-400); Red Blood Cell (RBC) Count 4.17 mill/uL (4.70-6.10); White Blood Cell (WBC) Count 9.7 thou/uL (4.8-10.8)
[2021-05-13 19:23] LABS: Chloride 100 mmol/L (98-107); Potassium 3.2 mmol/L (3.5-5.1); Sodium 137 mmol/L (136-145)
[2021-05-13 19:49] LABS: Albumin 3.5 g/dL (3.4-4.8)
[2021-05-13 19:51] LABS: Calcium 8.6 mg/dL (7.8-10.44); Glucose 117 mg/dL (83-110)
[2021-05-13 19:52] LABS: Protein, Total 6.5 g/dL (5.8-8.1)
[2021-05-13 19:53] LABS: Anion Gap 14 mmol/L (10-20); Bilirubin, Total 1.3 mg/dL (0.2-1.2); Carbon Dioxide 26 mmol/L (23-31)
[2021-05-13 19:54] LABS: Alkaline Phosphatase 97 U/L (40-110)
[2021-05-13 19:55] LABS: BUN (Urea Nitrogen) 10 mg/dL (8.4-25.7); Calc. Creatinine Clearance 0 mL/min (70-130)
[2021-05-13 19:56] LABS: AST (SGOT) 20 U/L (5-34)
[2021-05-13 19:57] LABS: ALT (SGPT) 11 U/L (8-55)
[2021-05-13] MEDS ORDERED: Vancomycin HCl 1 GM in Sodium Chloride 0.9% 250 ML 300 ML IVPB SCH (21:00)
[2021-05-13] MEDS: Acetaminophen 325 MG TAB PO PRN (21:01)
[2021-05-13] MEDS: Cefepime 2 GM in Sodium Chloride 0.9% 100 ML IVPB SCH (21:02)
[2021-05-13] MEDS: hydrALAZINE 25 MG TAB PO SCH (21:12)
[2021-05-13] MEDS: Atorvastatin Calcium 40 MG TAB PO SCH (21:13)
[2021-05-13] MEDS: Metoprolol Tartrate 50 MG TAB PO SCH (21:13)
[2021-05-13 21:36] VITALS: BMI 31.7
[2021-05-13] MEDS ORDERED: VANCOMYCIN 2 GRAM/400 ML BAG 2 GM in Premix Bag 1 BAG IVPB SCH (22:00)
[2021-05-14] MEDS: Acetaminophen 325 MG TAB PO PRN (01:03)
[2021-05-14] MEDS: hydrALAZINE 20 MG/ML VIAL SLOW IVP PRN (01:58)
[2021-05-14] MEDS ORDERED: HumaLOG 300 UNITS/3 ML VIAL SC PRN (02:42)
[2021-05-14] MEDS ORDERED: Dextrose 50% Abboject 50 ML SYRINGE SLOW IVP PRN (02:42)
[2021-05-14] MEDS ORDERED: Dextrose 5% in Water 1,000 ML IV PRN (02:42)
[2021-05-14] MEDS ORDERED: Morphine 4 MG/ML VIAL SLOW IVP PRN (03:45)
[2021-05-14] MEDS: Morphine 4 MG/ML VIAL SLOW IVP PRN ×2 (04:01→08:29)
[2021-05-14 04:31] LABS: #Lymphocytes 0.6 thou/uL (1.20-3.40); #Neutrophils 8.2 thou/uL (1.40-6.50); %Basophils 0.2 % (0.0-1.0); %Eosinophils 0.2 % (0.0-10.0); %Lymphocytes 5.9 % (21.0-51.0); %Monocytes 10.4 % (0.0-10.0); %Neutrophils 83.2 % (42.0-75.0); Hemoglobin 11.5 g/dL (14.0-18.0); Mean Corpuscular HGB CONC 33.2 g/dL (32.0-36.0); Mean Corpuscular Hemoglobin 28.6 pg (27.0-31.0); Mean Corpuscular Volume 86.3 fL (78.0-98.0); Mean Platelet Volume 7.4 fL (7.4-10.4); Platelet Count 177 thou/uL (130-400); RBC Distribution Width 13.9 % (11.5-14.5); Red Blood Cell (RBC) Count 4.03 mill/uL (4.70-6.10); White Blood Cell (WBC) Count 9.9 thou/uL (4.8-10.8)
[2021-05-14 04:49] LABS: Anion Gap 14 mmol/L (10-20); BUN (Urea Nitrogen) 10 mg/dL (8.4-25.7); Calc. Creatinine Clearance 80 mL/min (70-130); Calcium 8.4 mg/dL (7.8-10.44); Carbon Dioxide 24 mmol/L (23-31); Chloride 100 mmol/L (98-107); Glucose 172 mg/dL (83-110); Potassium 3.1 mmol/L (3.5-5.1); Sodium 135 mmol/L (136-145)
[2021-05-14] MEDS: Pioglitazone HCl 45 MG TAB PO SCH (08:23)
[2021-05-14] MEDS: Dronedarone HCl 400 MG TAB PO SCH ×2 (08:23→18:05)
[2021-05-14] MEDS: Aspirin 81 mg Enteric Coated Tablet PO SCH (08:23)
[2021-05-14] MEDS: Cefepime 2 GM in Sodium Chloride 0.9% 100 ML IVPB SCH ×2 (08:23→20:40)
[2021-05-14] MEDS: Amlodipine 5 MG TAB PO SCH (08:24)
[2021-05-14] MEDS: Enoxaparin Sodium 40 MG/0.4 ML SYRINGE SC SCH (08:24)
[2021-05-14] MEDS: Lisinopril 10 MG TAB PO SCH (08:25)
[2021-05-14] MEDS: Metoprolol Tartrate 50 MG TAB PO SCH ×2 (08:25→20:40)
[2021-05-14] MEDS: hydrALAZINE 25 MG TAB PO SCH ×2 (08:28→20:39)
[2021-05-14] MEDS ORDERED: Iopamidol-370 76% 500 ML 1 ML ONE (09:06)
[2021-05-14] MEDS: Vancomycin 1 GM in Premix Bag 1 BAG IVPB SCH ×2 (10:00→21:21)
[2021-05-14] MEDS: HumaLOG 300 UNITS/3 ML VIAL SC PRN (11:54)
[2021-05-14 16:47] LABS: INR-International Normal Ratio 1.3; Prothrombin Time 16.4 sec (12.0-14.7)
[2021-05-14 16:48] LABS: PTT 44.5 sec (22.9-36.1)
[2021-05-14] MEDS ORDERED: Acetaminophen 650 MG Suppository PR PRN (18:54)
[2021-05-14] MEDS: Atorvastatin Calcium 40 MG TAB PO SCH (20:39)
[2021-05-15] MEDS: hydrALAZINE 20 MG/ML VIAL SLOW IVP PRN (04:45)
[2021-05-15 06:36] LABS: Anion Gap 15 mmol/L (10-20); BUN (Urea Nitrogen) 14 mg/dL (8.4-25.7); Calc. Creatinine Clearance 83 mL/min (70-130); Calcium 8.6 mg/dL (7.8-10.44); Carbon Dioxide 25 mmol/L (23-31); Chloride 102 mmol/L (98-107); Cholesterol 90 mg/dl (< 200 Desired); Glucose 113 mg/dL (83-110); HDL Cholesterol 30 mg/dL (>60 Neg Risk); LDL Cholesterol, Calculated 49 mg/dL; Potassium 3.2 mmol/L (3.5-5.1); Sodium 139 mmol/L (136-145); Triglycerides 56 mg/dL (Less than 150)
[2021-05-15 06:40] LABS: Hemoglobin 11.9 g/dL (14.0-18.0); Hypochromia SLIGHT = 6-15 cells (100X) (0-5/hpf); Lymphocytes 23 % (21-51); MDiff Complete? YES; Mean Corpuscular HGB CONC 34.9 g/dL (32.0-36.0); Mean Corpuscular Hemoglobin 30.1 pg (27.0-31.0); Mean Corpuscular Volume 86.3 fL (78.0-98.0); Mean Platelet Volume 7.6 fL (7.4-10.4); Monocytes 18 % (0-10); Neutrophil 59 % (42-75); Platelet Count 187 thou/uL (130-400); Platelet Morphology Comment Appears Adequate; RBC Distribution Width 13.9 % (11.5-14.5); Red Blood Cell (RBC) Count 3.95 mill/uL (4.70-6.10); White Blood Cell (WBC) Count 9.2 thou/uL (4.8-10.8)
[2021-05-15] MEDS: Pioglitazone HCl 45 MG TAB PO SCH (08:45)
[2021-05-15] MEDS: Metoprolol Tartrate 50 MG TAB PO SCH ×2 (08:45→20:22)
[2021-05-15] MEDS: hydrALAZINE 25 MG TAB PO SCH ×2 (08:45→20:22)
[2021-05-15] MEDS: Aspirin 81 mg Enteric Coated Tablet PO SCH (08:45)
[2021-05-15] MEDS: Dronedarone HCl 400 MG TAB PO SCH ×2 (08:45→16:51)
[2021-05-15] MEDS: Cefepime 2 GM in Sodium Chloride 0.9% 100 ML IVPB SCH (08:46)
[2021-05-15] MEDS: Enoxaparin Sodium 40 MG/0.4 ML SYRINGE SC SCH (08:46)
[2021-05-15] MEDS: Lisinopril 10 MG TAB PO SCH (08:46)
[2021-05-15 09:53] LABS: Vancomycin, Trough 14.1 ug/mL
[2021-05-15] MEDS: Amlodipine 5 MG TAB PO SCH (09:53)
[2021-05-15] MEDS: Vancomycin 1 GM in Premix Bag 1 BAG IVPB SCH (09:54)
[2021-05-15] MEDS: HumaLOG 300 UNITS/3 ML VIAL SC PRN (10:58)
[2021-05-15] MEDS ORDERED: Sodium Chloride 0.9% 1,000 ML IV SCH (17:45)
[2021-05-15] MEDS: cefTRIAXone\\ROCEPHIN 2 GM in Sodium Chloride 0.9% 100 ML IVPB SCH ×3 (18:48→20:25)
[2021-05-15] MEDS: Atorvastatin Calcium 40 MG TAB PO SCH (20:22)
[2021-05-15] MEDS: Acetaminophen 325 MG TAB PO PRN (20:23)
[2021-05-15] MEDS ORDERED: VANCOMYCIN 1.25 GM/250 ML BAG 1.25 GM in Premix Bag 1 BAG IVPB SCH (22:00)
[2021-05-15] MEDS ORDERED: Gentamicin Sulfate 60 MG in Premix Bag 1 BAG IVPB SCH (22:00)
[2021-05-16 05:54] LABS: Anion Gap 12 mmol/L (10-20); BUN (Urea Nitrogen) 17 mg/dL (8.4-25.7); Calc. Creatinine Clearance 86 mL/min (70-130); Calcium 8.2 mg/dL (7.8-10.44); Carbon Dioxide 25 mmol/L (23-31); Chloride 103 mmol/L (98-107); Glucose 113 mg/dL (83-110); Potassium 3.4 mmol/L (3.5-5.1); Sodium 137 mmol/L (136-145)
[2021-05-16 05:57] LABS: #Eosinphils 0.1 thou/uL (0.0-0.7); #Lymphocytes 1.1 thou/uL (1.20-3.40); #Monocytes 0.9 thou/uL (0.11-0.59); #Neutrophils 5.1 thou/uL (1.40-6.50); %Basophils 0.6 % (0.0-1.0); %Eosinophils 0.9 % (0.0-10.0); %Lymphocytes 15.2 % (21.0-51.0); %Monocytes 12.7 % (0.0-10.0); %Neutrophils 70.6 % (42.0-75.0); Hemoglobin 11.1 g/dL (14.0-18.0); Mean Corpuscular HGB CONC 33.3 g/dL (32.0-36.0); Mean Corpuscular Hemoglobin 28.4 pg (27.0-31.0); Mean Corpuscular Volume 85.3 fL (78.0-98.0); Mean Platelet Volume 8.5 fL (7.4-10.4); Platelet Count 176 thou/uL (130-400); RBC Distribution Width 13.6 % (11.5-14.5); White Blood Cell (WBC) Count 7.2 thou/uL (4.8-10.8)
[2021-05-16] MEDS: Acetaminophen 325 MG TAB PO PRN ×3 (08:28→21:01)
[2021-05-16] MEDS: Pioglitazone HCl 45 MG TAB PO SCH (08:29)
[2021-05-16] MEDS: Dronedarone HCl 400 MG TAB PO SCH ×2 (08:29→15:55)
[2021-05-16] MEDS: Metoprolol Tartrate 50 MG TAB PO SCH ×2 (08:29→21:01)
[2021-05-16] MEDS: Lisinopril 10 MG TAB PO SCH (08:31)
[2021-05-16] MEDS: Amlodipine 5 MG TAB PO SCH (08:32)
[2021-05-16] MEDS: Aspirin 81 mg Enteric Coated Tablet PO SCH (08:32)
[2021-05-16] MEDS: hydrALAZINE 25 MG TAB PO SCH ×2 (08:33→20:59)
[2021-05-16] MEDS: Enoxaparin Sodium 40 MG/0.4 ML SYRINGE SC SCH (08:33)
[2021-05-16] MEDS ORDERED: PROPOFOL 200 MG/20 ML VIAL ONE (11:50)
[2021-05-16] MEDS ORDERED: Lidocaine 1% PF 5 ML VIAL ONE (11:50)
[2021-05-16] MEDS ORDERED: ePHEDrine 50 MG/ML VIAL ONE (11:50)
[2021-05-16] MEDS: Sodium Chloride 0.9% 1,000 ML IV SCH (19:51)
[2021-05-16] MEDS: Atorvastatin Calcium 40 MG TAB PO SCH (21:01)
[2021-05-16] MEDS: Artificial Tear Sol 15 ML BOT EA EYE PRN (21:01)
[2021-05-16] MEDS: cefTRIAXone\\ROCEPHIN 2 GM in Sodium Chloride 0.9% 100 ML IVPB SCH (21:02)
[2021-05-17 03:53] LABS: #Basophils 0.1 thou/uL (0.0-0.2); #Eosinphils 0.1 thou/uL (0.0-0.7); #Monocytes 0.7 thou/uL (0.11-0.59); #Neutrophils 4.5 thou/uL (1.40-6.50); %Basophils 0.9 % (0.0-1.0); %Eosinophils 2.1 % (0.0-10.0); %Lymphocytes 15.5 % (21.0-51.0); %Monocytes 11.1 % (0.0-10.0); %Neutrophils 70.4 % (42.0-75.0); Hemoglobin 11.8 g/dL (14.0-18.0); Mean Corpuscular HGB CONC 33.4 g/dL (32.0-36.0); Mean Corpuscular Hemoglobin 28.9 pg (27.0-31.0); Mean Corpuscular Volume 86.4 fL (78.0-98.0); Mean Platelet Volume 8.1 fL (7.4-10.4); Platelet Count 181 thou/uL (130-400); RBC Distribution Width 13.6 % (11.5-14.5); Red Blood Cell (RBC) Count 4.07 mill/uL (4.70-6.10); White Blood Cell (WBC) Count 6.4 thou/uL (4.8-10.8)
[2021-05-17 04:13] LABS: Anion Gap 12 mmol/L (10-20); BUN (Urea Nitrogen) 17 mg/dL (8.4-25.7); Calc. Creatinine Clearance 88 mL/min (70-130); Calcium 8.2 mg/dL (7.8-10.44); Carbon Dioxide 25 mmol/L (23-31); Chloride 103 mmol/L (98-107); Glucose 113 mg/dL (83-110); Potassium 3.3 mmol/L (3.5-5.1); Sodium 137 mmol/L (136-145)
[2021-05-17] MEDS: Acetaminophen 325 MG TAB PO PRN ×2 (04:41→20:37)
[2021-05-17] MEDS: Dronedarone HCl 400 MG TAB PO SCH ×2 (07:49→16:49)
[2021-05-17] MEDS: Sodium Chloride 0.9% 1,000 ML IV SCH ×2 (07:49→20:51)
[2021-05-17] MEDS: Artificial Tear Sol 15 ML BOT EA EYE PRN (07:50)
[2021-05-17] MEDS: Pioglitazone HCl 45 MG TAB PO SCH (08:37)
[2021-05-17] MEDS: Metoprolol Tartrate 50 MG TAB PO SCH ×2 (08:37→20:41)
[2021-05-17] MEDS: Lisinopril 10 MG TAB PO SCH (08:37)
[2021-05-17] MEDS: Amlodipine 5 MG TAB PO SCH (08:37)
[2021-05-17] MEDS: Aspirin 81 mg Enteric Coated Tablet PO SCH (08:38)
[2021-05-17] MEDS: Enoxaparin Sodium 40 MG/0.4 ML SYRINGE SC SCH (08:38)
[2021-05-17] MEDS ORDERED: FLU VACC QS2021-22(65YR UP)/PF 240 MCG/0.7 ML SYRINGE IM ONE (09:00)
[2021-05-17 09:39] LABS: Vancomycin, Trough 3.3 ug/mL
[2021-05-17] MEDS: hydrALAZINE 25 MG TAB PO SCH ×2 (09:55→20:38)
[2021-05-17] MEDS: cefTRIAXone\\ROCEPHIN 2 GM in Sodium Chloride 0.9% 100 ML IVPB SCH (20:36)
[2021-05-17] MEDS: Atorvastatin Calcium 40 MG TAB PO SCH (20:38)
[2021-05-18] MEDS: Enoxaparin Sodium 40 MG/0.4 ML SYRINGE SC SCH (09:18)
[2021-05-18] MEDS: Dronedarone HCl 400 MG TAB PO SCH ×2 (09:18→16:35)
[2021-05-18] MEDS: Aspirin 81 mg Enteric Coated Tablet PO SCH (09:18)
[2021-05-18] MEDS: hydrALAZINE 25 MG TAB PO SCH ×2 (09:18→20:13)
[2021-05-18] MEDS: Pioglitazone HCl 45 MG TAB PO SCH (09:18)
[2021-05-18] MEDS: Amlodipine 5 MG TAB PO SCH (09:19)
[2021-05-18] MEDS: Lisinopril 10 MG TAB PO SCH (09:19)
[2021-05-18] MEDS: Metoprolol Tartrate 50 MG TAB PO SCH (09:20)
[2021-05-18] MEDS: Sodium Chloride 0.9% 1,000 ML IV SCH (12:43)
[2021-05-18] MEDS: Acetaminophen 325 MG TAB PO PRN ×2 (12:44→23:33)
[2021-05-18] MEDS: Atorvastatin Calcium 40 MG TAB PO SCH (20:12)
[2021-05-18] MEDS: Metoprolol Tartrate 25 MG TAB PO SCH (20:45)
[2021-05-18] MEDS: cefTRIAXone\\ROCEPHIN 2 GM in Sodium Chloride 0.9% 100 ML IVPB SCH (23:01)
[2021-05-19] MEDS: Sodium Chloride 0.9% 1,000 ML IV SCH ×2 (06:42→16:04)
[2021-05-19 07:09] LABS: #Eosinphils 0.2 thou/uL (0.0-0.7); #Lymphocytes 1.1 thou/uL (1.20-3.40); #Monocytes 0.6 thou/uL (0.11-0.59); #Neutrophils 4.2 thou/uL (1.40-6.50); %Basophils 0.3 % (0.0-1.0); %Eosinophils 3.2 % (0.0-10.0); %Lymphocytes 18.5 % (21.0-51.0); %Monocytes 9.1 % (0.0-10.0); %Neutrophils 68.9 % (42.0-75.0); Hemoglobin 10.9 g/dL (14.0-18.0); Mean Corpuscular HGB CONC 33.8 g/dL (32.0-36.0); Mean Corpuscular Hemoglobin 29.2 pg (27.0-31.0); Mean Corpuscular Volume 86.2 fL (78.0-98.0); Mean Platelet Volume 8.2 fL (7.4-10.4); Platelet Count 165 thou/uL (130-400); RBC Distribution Width 13.6 % (11.5-14.5); Red Blood Cell (RBC) Count 3.72 mill/uL (4.70-6.10); White Blood Cell (WBC) Count 6.1 thou/uL (4.8-10.8)
[2021-05-19 07:14] LABS: Anion Gap 11 mmol/L (10-20); BUN (Urea Nitrogen) 11 mg/dL (8.4-25.7); Calc. Creatinine Clearance 99 mL/min (70-130); Calcium 7.9 mg/dL (7.8-10.44); Carbon Dioxide 24 mmol/L (23-31); Chloride 105 mmol/L (98-107); Glucose 90 mg/dL (83-110); Potassium 3.1 mmol/L (3.5-5.1); Sodium 137 mmol/L (136-145)
[2021-05-19] MEDS ORDERED: Potassium Chloride 20 MEQ TAB PO SCH (08:30)
[2021-05-19] MEDS: Aspirin 81 mg Enteric Coated Tablet PO SCH (08:56)
[2021-05-19] MEDS: Dronedarone HCl 400 MG TAB PO SCH ×2 (08:56→17:15)
[2021-05-19] MEDS: Metoprolol Tartrate 25 MG TAB PO SCH ×2 (08:56→20:04)
[2021-05-19] MEDS: hydrALAZINE 25 MG TAB PO SCH ×2 (08:57→20:13)
[2021-05-19] MEDS: Pioglitazone HCl 45 MG TAB PO SCH (08:57)
[2021-05-19] MEDS: Lisinopril 10 MG TAB PO SCH (08:58)
[2021-05-19] MEDS: Amlodipine 5 MG TAB PO SCH (08:58)
[2021-05-19] MEDS: Enoxaparin Sodium 40 MG/0.4 ML SYRINGE SC SCH (08:59)
[2021-05-19] MEDS: Atorvastatin Calcium 40 MG TAB PO SCH (20:03)
[2021-05-19] MEDS: cefTRIAXone\\ROCEPHIN 2 GM in Sodium Chloride 0.9% 100 ML IVPB SCH (20:16)
[2021-05-20] MEDS: Sodium Chloride 0.9% 1,000 ML IV SCH ×2 (02:30→13:58)
[2021-05-20 04:00] LABS: #Basophils 0.1 thou/uL (0.0-0.2); #Eosinphils 0.2 thou/uL (0.0-0.7); #Lymphocytes 1.2 thou/uL (1.20-3.40); #Monocytes 0.7 thou/uL (0.11-0.59); #Neutrophils 5.1 thou/uL (1.40-6.50); %Basophils 1.1 % (0.0-1.0); %Eosinophils 2.7 % (0.0-10.0); %Lymphocytes 16.6 % (21.0-51.0); %Monocytes 9.7 % (0.0-10.0); %Neutrophils 69.9 % (42.0-75.0); Hemoglobin 11.2 g/dL (14.0-18.0); Mean Corpuscular Hemoglobin 28.9 pg (27.0-31.0); Mean Corpuscular Volume 85.3 fL (78.0-98.0); Mean Platelet Volume 9.2 fL (7.4-10.4); Platelet Count 158 thou/uL (130-400); RBC Distribution Width 13.9 % (11.5-14.5); Red Blood Cell (RBC) Count 3.86 mill/uL (4.70-6.10); White Blood Cell (WBC) Count 7.3 thou/uL (4.8-10.8)
[2021-05-20 04:23] LABS: Anion Gap 11 mmol/L (10-20); BUN (Urea Nitrogen) 10 mg/dL (8.4-25.7); Calc. Creatinine Clearance 111 mL/min (70-130); Calcium 7.8 mg/dL (7.8-10.44); Carbon Dioxide 24 mmol/L (23-31); Chloride 103 mmol/L (98-107); Glucose 84 mg/dL (83-110); Potassium 3.3 mmol/L (3.5-5.1); Sodium 135 mmol/L (136-145)
[2021-05-20] MEDS ORDERED: Potassium Chloride 20 MEQ TAB PO SCH ×2 (08:00→14:00)
[2021-05-20] MEDS: Aspirin 81 mg Enteric Coated Tablet PO SCH (08:26)
[2021-05-20] MEDS: Enoxaparin Sodium 40 MG/0.4 ML SYRINGE SC SCH (08:26)
[2021-05-20] MEDS: Lisinopril 10 MG TAB PO SCH (08:36)
[2021-05-20] MEDS: Pioglitazone HCl 45 MG TAB PO SCH (08:37)
[2021-05-20] MEDS ORDERED: Amlodipine 5 MG TAB PO SCH (09:00)
[2021-05-20] MEDS: Dronedarone HCl 400 MG TAB PO SCH ×2 (09:57→17:55)
[2021-05-20] MEDS: Metoprolol Tartrate 25 MG TAB PO SCH ×2 (09:58→19:57)
[2021-05-20] MEDS: hydrALAZINE 25 MG TAB PO SCH ×2 (10:32→19:57)
[2021-05-20 15:55] VITALS: BP 159/72; TEMP 98.3
[2021-05-20] MEDS: Atorvastatin Calcium 40 MG TAB PO SCH (19:57)
[2021-05-20] MEDS: cefTRIAXone\\ROCEPHIN 2 GM in Sodium Chloride 0.9% 100 ML IVPB SCH (20:57)
== END 2021-05-20 20:44 | DRG 871 ==
LOC: ERS 12:20 → T4-A 16:56 → 3SE 05-14 14:30
PROVIDERS: ADMIT Internal Medicine; ATTEND Internal Medicine
PROC: B24BZZ4 Ultrasonography of Heart with Aorta, Transesophageal (ICD-10-PCS; principal; 2021-05-16)
PROC: 02H633Z Insertion of Infusion Device into Right Atrium, Percutaneous Approach (ICD-10-PCS; 2021-05-20)
PROC: B5181ZA Fluoroscopy of Superior Vena Cava using Low Osmolar Contrast, Guidance (ICD-10-PCS; 2021-05-20)
PROC: B548ZZA Ultrasonography of Superior Vena Cava, Guidance (ICD-10-PCS; 2021-05-20)
DX: A40.8 Other streptococcal sepsis (principal); I33.0 Acute and subacute infective endocarditis; I63.531 Cerebral infarction due to unspecified occlusion or stenosis of right posterior cerebral artery; G81.94 Hemiplegia, unspecified affecting left nondominant side; N39.0 Urinary tract infection, site not specified; I48.20 Chronic atrial fibrillation, unspecified; Z20.822 Contact with and (suspected) exposure to COVID-19; E87.6 Hypokalemia; I08.1 Rheumatic disorders of both mitral and tricuspid valves; E66.9 Obesity, unspecified; E11.22 Type 2 diabetes mellitus with diabetic chronic kidney disease; I12.9 Hypertensive chronic kidney disease with stage 1 through stage 4 chronic kidney disease, or unspecified chronic kidney disease; N18.9 Chronic kidney disease, unspecified; E78.00 Pure hypercholesterolemia, unspecified; B96.5 Pseudomonas (aeruginosa) (mallei) (pseudomallei) as the cause of diseases classified elsewhere; I08.3 Combined rheumatic disorders of mitral, aortic and tricuspid valves; I70.0 Atherosclerosis of aorta; E78.5 Hyperlipidemia, unspecified; R47.1 Dysarthria and anarthria; R29.708 NIHSS score 8; M25.511 Pain in right shoulder; Z87.01 Personal history of pneumonia (recurrent); Z79.899 Other long term (current) drug therapy; Z79.82 Long term (current) use of aspirin; Z79.01 Long term (current) use of anticoagulants; Z95.2 Presence of prosthetic heart valve; Z90.49 Acquired absence of other specified parts of digestive tract; Z85.038 Personal history of other malignant neoplasm of large intestine; Z68.32 Body mass index [BMI] 32.0-32.9, adult; Z88.8 Allergy status to other drugs, medicaments and biological substances
CPT/HCPCS: 36415; 36416; 36569; 70450; 70496; 70498; 71045; 71260; 74177; 80048; 80053; 80061; 80170; 80202; 81003; 81015; 82553; 83605; 83880; 84145; 84484; 85025; 85610; 85730; 87040; 87077; 87086; 87149; 87186; 93005; 93010; 93306; 93312; 94760; 95712; 95819; 95957; 96365; C1751; J0360; J0692; J0696; J1580; J1644; J1650; J1815; J2270; J2704; J3370; J3490; J7050; Q9967; U0002

== ENCOUNTER 2021-05-29 14:59 | Inpatient (IN) | payer MEDICARE ==
[~2021-05-29 14:59] MED LIST changes: -Heparin 1,000 UNITS/ML VIAL ONE
[2021-05-29] MEDS ORDERED: Naloxone HCl 0.4 mg/ml Vial ONE (15:50)
[2021-05-29] MEDS ORDERED: Rocuronium Bromide 10 MG/ML (10ML VIAL) ONE (15:55)
[2021-05-29] MEDS ORDERED: Propofol 1,000 MG/100 ML VIAL IV ONE (16:06)
[2021-05-29] MEDS ORDERED: Midazolam HCl 5 mg/ml Vial ONE (16:06)
[2021-05-29 16:21] LABS: Actual Bicarbonate (HCO3a) 21.9 mEq/L (22-28); Analyzer IN Cardio ER; Base Excess (BEa) -1.7 mEq/L (-2.0 to +3.0); CO2 Tension 33.4 mmHg (35.0-45.0); Calcium, Ionized (arterial) 1.16 mmol/L (1.12-1.30); Carboxyhemoglobin (COHb) 0.1 gm% (0.0-3.0); Hemoglobin (Hb) 12.1 g/dL (14.0-18.0); O2 Tension (PaO2), arterial 157.4 mmHg (> 70.0); Potassium - ABG Lab 4.25 mmol/L (3.70-5.30); pH, Arterial 7.44 (7.35-7.45)
[2021-05-29 16:21] LABS: #Basophils 0.1 thou/uL (0.0-0.2); #Eosinphils 0.1 thou/uL (0.0-0.7); #Lymphocytes 0.8 thou/uL (1.20-3.40); #Monocytes 0.7 thou/uL (0.11-0.59); #Neutrophils 5.9 thou/uL (1.40-6.50); %Basophils 0.7 % (0.0-1.0); %Eosinophils 1.1 % (0.0-10.0); %Lymphocytes 10.1 % (21.0-51.0); %Monocytes 9.7 % (0.0-10.0); %Neutrophils 78.3 % (42.0-75.0); Hemoglobin 11.1 g/dL (14.0-18.0); Mean Corpuscular HGB CONC 32.6 g/dL (32.0-36.0); Mean Corpuscular Hemoglobin 28.9 pg (27.0-31.0); Mean Corpuscular Volume 88.6 fL (78.0-98.0); Mean Platelet Volume 7.5 fL (7.4-10.4); Platelet Count 243 thou/uL (130-400); RBC Distribution Width 15.2 % (11.5-14.5); Red Blood Cell (RBC) Count 3.84 mill/uL (4.70-6.10); White Blood Cell (WBC) Count 7.5 thou/uL (4.8-10.8)
[2021-05-29 16:22] LABS: Puncture Site RRA
[2021-05-29 16:31] LABS: INR-International Normal Ratio 1.6; PTT 36.7 sec (22.9-36.1); Prothrombin Time 18.9 sec (12.0-14.7)
[2021-05-29 16:44] LABS: ALT (SGPT) 30 U/L (8-55); AST (SGOT) 33 U/L (5-34); Acetaminophen Less than 6.0 mcg/mL (10.0-30.0); Albumin 3.2 g/dL (3.4-4.8); Alcohol Less than 10 mg/dL (Less than 10); Alkaline Phosphatase 76 U/L (40-110); Anion Gap 12 mmol/L (10-20); BUN (Urea Nitrogen) 14 mg/dL (8.4-25.7); Bilirubin, Total 0.9 mg/dL (0.2-1.2); Calc. Creatinine Clearance 0 mL/min (70-130); Calcium 8.6 mg/dL (7.8-10.44); Carbon Dioxide 24 mmol/L (23-31); Chloride 100 mmol/L (98-107); Globulin 3.1 g/dL (2.4-3.5); Glucose 118 mg/dL (83-110); Magnesium 1.9 mg/dL (1.6-2.6); Potassium 4.4 mmol/L (3.5-5.1); Protein, Total 6.3 g/dL (5.8-8.1); Salicylate Less than 8.0 mg/dL (15.0-30.0); Sodium 132 mmol/L (136-145)
[2021-05-29] MEDS ORDERED: Norepinephrine 8 MG/0.9% NS 250 ML ONE (16:49)
[2021-05-29 16:56] LABS: Bilirubin Negative (Negative); Blood, Urine Negative (Negative); Clarity Clear (Clear); Glucose, Urine (Dipstick) Normal (Negative); Ketone, Urine Negative (Negative); Leukocyte Negative Leu/uL (Negative); Nitrite Negative (Negative); Protein, Urine (Dipstick) Negative (Neg-Trace); Specific Gravity, Urine 1.048 (1.002-1.036); Urobilinogen Normal mg/dL (Less than 2); pH, Urine 5.5 (5.0-9.0)
[2021-05-29] MEDS ORDERED: Fentanyl CADD 100 ML IV SCH (17:00)
[2021-05-29 17:04] LABS: Amphetamine Not Detected (NotDetected); Barbiturates Screen Not Detected (NotDetected); Benzodiazepine Screen Not Detected (NotDetected); Cocaine Metabolite Screen Not Detected (NotDetected); Methadone Not Detected (NotDetected); Methamphetamine Not Detected (NotDetected); Opiate Screen Not Detected (NotDetected); Oxycodone Screen Not Detected (NotDetected); Phencyclidine (PCP) Not Detected (NotDetected); THC/Cannabinoid Screen Not Detected (NotDetected); Tricyclic Screen Not Detected (NotDetected)
[2021-05-29 17:05] LABS: CKMB 1.4 ng/mL (0-6.6)
[2021-05-29] MEDS ORDERED: Vancomycin 1 GM/200 ML BAG ONE (17:08)
[2021-05-29] MEDS ORDERED: cefTRIAXone\\ROCEPHIN 2 GM VIAL ONE (17:08)
[2021-05-29 18:18] LABS: SARS-CoV-2 NAA Rapid Test Not Detected (NotDetected)
[2021-05-29] MEDS ORDERED: Insulin Regular 300 UNITS/3 ML VIAL SC PRN ×2 (18:21)
[2021-05-29] MEDS ORDERED: Acetaminophen 325 MG Suppository PR PRN (18:21)
[2021-05-29] MEDS ORDERED: Electrolyte Replacement Protocol 1 EACH IVPB ONE (18:21)
[2021-05-29] MEDS ORDERED: Ventilator Sedation Protocol 1 EACH FS SCH (18:30)
[2021-05-29] MEDS ORDERED: Morphine 2 MG/ML VIAL SLOW IVP PRN (19:15)
[2021-05-29] MEDS ORDERED: Fentanyl BOLUS 250 ML IVPB PRN (19:15)
[2021-05-29] MEDS ORDERED: Morphine 4 MG/ML VIAL SLOW IVP PRN (19:15)
[2021-05-29] MEDS ORDERED: Propofol BOLUS 1,000 MG/100 ML VIAL IV PRN (19:15)
[2021-05-29] MEDS ORDERED: DISCONTINUE PREVIOUS NARCOTIC PAIN MEDICATIONS AND BENZODIAZEPINES FS SCH (19:15)
[2021-05-29 19:27] LABS: Troponin I 0.048 ng/mL (< 0.028)
[2021-05-29] MEDS ORDERED: Vancomycin HCl 750 MG in Sodium Chloride 0.9% 250 ML 250 ML IVPB SCH (20:00)
[2021-05-29] MEDS: Atorvastatin Calcium 40 MG TAB PER TUBE SCH (20:08)
[2021-05-29] MEDS: Scopolamine 1.5 mg/72 hour Patch TD SCH (20:08)
[2021-05-29] MEDS: Sodium Chloride 0.9% 1,000 ML IV SCH (20:09)
[2021-05-29] MEDS ORDERED: MEROPENEM 1 GM/50 ML 1 GM in Premix Bag 1 BAG IVPB SCH (21:00)
[2021-05-29] MEDS ORDERED: Famotidine/PF 20 mg/2ml Vial SLOW IVP SCH (21:00)
[2021-05-29] MEDS ORDERED: Meropenem 1 GM in Sodium Chloride 0.9% 100 ML IVPB SCH (22:00)
[2021-05-29 22:10] LABS: Troponin I 0.043 ng/mL (< 0.028)
[2021-05-29] MEDS: Propofol 1,000 MG/100 ML VIAL IV PRN (23:13)
[2021-05-30] MEDS ORDERED: Acetaminophen 650 MG Suppository PR PRN (03:00)
[2021-05-30] MEDS ORDERED: Norepinephrine 8 MG/0.9% NS 250 ML IVPB SCH (04:00)
[2021-05-30 04:24] LABS: ALT (SGPT) 27 U/L (8-55); AST (SGOT) 31 U/L (5-34); Alkaline Phosphatase 72 U/L (40-110); Anion Gap 13 mmol/L (10-20); BUN (Urea Nitrogen) 15 mg/dL (8.4-25.7); Bilirubin, Total 0.9 mg/dL (0.2-1.2); Calc. Creatinine Clearance 53 mL/min (70-130); Calcium 8.6 mg/dL (7.8-10.44); Carbon Dioxide 24 mmol/L (23-31); Chloride 103 mmol/L (98-107); Globulin 2.6 g/dL (2.4-3.5); Glucose 117 mg/dL (83-110); Potassium 4.6 mmol/L (3.5-5.1); Protein, Total 5.6 g/dL (5.8-8.1); Sodium 135 mmol/L (136-145)
[2021-05-30 04:53] LABS: Eosinophils 5 % (0-10); Hemoglobin 10.7 g/dL (14.0-18.0); Lymphocytes 11 % (21-51); MDiff Complete? YES; Mean Corpuscular HGB CONC 33.6 g/dL (32.0-36.0); Mean Corpuscular Hemoglobin 29.6 pg (27.0-31.0); Mean Platelet Volume 8.1 fL (7.4-10.4); Monocytes 12 % (0-10); Neutrophil 71 % (42-75); Platelet Count 249 thou/uL (130-400); Platelet Morphology Comment Appears Adequate; RBC Distribution Width 15.4 % (11.5-14.5); RBC Morphology Normal; Red Blood Cell (RBC) Count 3.61 mill/uL (4.70-6.10); White Blood Cell (WBC) Count 10.8 thou/uL (4.8-10.8)
[2021-05-30] MEDS ORDERED: MEROPENEM 1 GM/50 ML 1 GM in Premix Bag 1 BAG IVPB SCH ×2 (05:00→17:00)
[2021-05-30 07:42] LABS: Actual Bicarbonate (HCO3a) 25.9 mEq/L (22-28); Base Excess (BEa) 0.7 mEq/L (-2.0 to +3.0); CO2 Tension 43.9 mmHg (35.0-45.0); Calcium, Ionized (arterial) 1.15 mmol/L (1.12-1.30); Carboxyhemoglobin (COHb) 0.3 gm% (0.0-3.0); Hemoglobin (Hb) 10.9 g/dL (14.0-18.0); O2 Tension (PaO2), arterial 145.9 mmHg (> 70.0); Potassium - ABG Lab 4.44 mmol/L (3.70-5.30); pH, Arterial 7.39 (7.35-7.45)
[2021-05-30 07:43] LABS: ALV-art Gradient 84.425 mmHg (0-20); Puncture Site RRA
[2021-05-30] MEDS ORDERED: Aspirin 300 MG Suppository PR SCH (09:00)
[2021-05-30] MEDS ORDERED: Enoxaparin Sodium 40 MG/0.4 ML SYRINGE SC SCH (09:00)
[2021-05-30] MEDS ORDERED: Enoxaparin Sodium 100 MG/ML SYRINGE SC SCH (09:15)
[2021-05-30] MEDS ORDERED: Lactated Ringer's 1,000 ML IV SCH (09:30)
[2021-05-30] MEDS: Famotidine/PF 20 mg/2ml Vial SLOW IVP SCH ×2 (09:43→09:46)
[2021-05-30] MEDS: Sodium Chloride 0.9% 1,000 ML IV SCH (10:04)
[2021-05-30] MEDS ORDERED: Dronedarone HCl 400 MG TAB PER TUBE SCH ×2 (10:45→17:00)
[2021-05-30] MEDS ORDERED: Meropenem 1 GM in Sodium Chloride 0.9% 100 ML IVPB SCH (17:00)
[2021-05-30] MEDS: VANCOMYCIN 1.75 GM/350 ML BAG 1.75 GM in Premix Bag 1 BAG IVPB SCH (18:04)
[2021-05-30] MEDS: Propofol 1,000 MG/100 ML VIAL IV PRN (20:30)
[2021-05-30] MEDS: Lorazepam 2 MG/ML VIAL SLOW IVP PRN (20:30)
[2021-05-30] MEDS: Enoxaparin Sodium 100 MG/ML SYRINGE SC SCH (20:31)
[2021-05-30] MEDS: Senokot S 8.6-50 MG TAB PO SCH (20:31)
[2021-05-30] MEDS: Atorvastatin Calcium 40 MG TAB PER TUBE SCH (20:33)
[2021-05-30] MEDS ORDERED: Fentanyl CADD 100 ML ONE (23:55)
[2021-05-31] MEDS: Fentanyl CADD 100 ML IV SCH (00:02)
[2021-05-31 04:29] LABS: Hemoglobin 10.5 g/dL (14.0-18.0); Mean Corpuscular HGB CONC 32.5 g/dL (32.0-36.0); Mean Corpuscular Hemoglobin 29.1 pg (27.0-31.0); Mean Corpuscular Volume 89.6 fL (78.0-98.0); Mean Platelet Volume 7.6 fL (7.4-10.4); Platelet Count 219 thou/uL (130-400); RBC Distribution Width 15.4 % (11.5-14.5); Red Blood Cell (RBC) Count 3.62 mill/uL (4.70-6.10); White Blood Cell (WBC) Count 10.7 thou/uL (4.8-10.8)
[2021-05-31 04:30] LABS: ALT (SGPT) 22 U/L (8-55); AST (SGOT) 33 U/L (5-34); Alkaline Phosphatase 78 U/L (40-110); Anion Gap 12 mmol/L (10-20); BUN (Urea Nitrogen) 22 mg/dL (8.4-25.7); Bilirubin, Total 0.9 mg/dL (0.2-1.2); Calc. Creatinine Clearance 49 mL/min (70-130); Calcium 8.4 mg/dL (7.8-10.44); Carbon Dioxide 22 mmol/L (23-31); Chloride 107 mmol/L (98-107); Globulin 2.7 g/dL (2.4-3.5); Glucose 117 mg/dL (83-110); Potassium 4.7 mmol/L (3.5-5.1); Protein, Total 5.7 g/dL (5.8-8.1); Sodium 136 mmol/L (136-145)
[2021-05-31 05:18] LABS: Band 1 % (5-11); Eosinophils 7 % (0-10); Lymphocytes 10 % (21-51); MDiff Complete? YES; Monocytes 15 % (0-10); Neutrophil 66 % (42-75)
[2021-05-31] MEDS: MEROPENEM 1 GM/50 ML 1 GM in Premix Bag 1 BAG IVPB SCH ×2 (06:24→17:04)
[2021-05-31] MEDS: Aspirin 325 MG TAB PO SCH (08:45)
[2021-05-31] MEDS: Senokot S 8.6-50 MG TAB PO SCH ×2 (08:45→20:22)
[2021-05-31] MEDS: Enoxaparin Sodium 100 MG/ML SYRINGE SC SCH ×2 (08:46→20:21)
[2021-05-31 14:00] VITALS: BMI 27.6
[2021-05-31] MEDS: VANCOMYCIN 1.75 GM/350 ML BAG 1.75 GM in Premix Bag 1 BAG IVPB SCH (17:03)
[2021-05-31 17:28] LABS: Vancomycin, Trough 15.8 ug/mL
[2021-05-31] MEDS: Atorvastatin Calcium 40 MG TAB PER TUBE SCH (20:22)
[2021-05-31] MEDS: Famotidine/PF 20 mg/2ml Vial SLOW IVP SCH (20:22)
[2021-05-31] MEDS: Lorazepam 2 MG/ML VIAL SLOW IVP PRN (21:55)
[2021-05-31] MEDS: Propofol 1,000 MG/100 ML VIAL IV PRN (23:54)
[2021-06-01 04:08] LABS: Mean Corpuscular HGB CONC 34.5 g/dL (32.0-36.0); Mean Corpuscular Hemoglobin 30.6 pg (27.0-31.0); Mean Corpuscular Volume 88.5 fL (78.0-98.0); Mean Platelet Volume 7.3 fL (7.4-10.4); Platelet Count 164 thou/uL (130-400); RBC Distribution Width 15.1 % (11.5-14.5); Red Blood Cell (RBC) Count 3.28 mill/uL (4.70-6.10); White Blood Cell (WBC) Count 7.1 thou/uL (4.8-10.8)
[2021-06-01 04:36] LABS: Phosphorus 3.5 mg/dL (2.3-4.7)
[2021-06-01 04:39] LABS: ALT (SGPT) 19 U/L (8-55); AST (SGOT) 30 U/L (5-34); Albumin 2.7 g/dL (3.4-4.8); Alkaline Phosphatase 75 U/L (40-110); Anion Gap 13 mmol/L (10-20); BUN (Urea Nitrogen) 20 mg/dL (8.4-25.7); Bilirubin, Total 0.7 mg/dL (0.2-1.2); Calc. Creatinine Clearance 76 mL/min (70-130); Calcium 8.3 mg/dL (7.8-10.44); Carbon Dioxide 21 mmol/L (23-31); Chloride 108 mmol/L (98-107); Globulin 2.6 g/dL (2.4-3.5); Glucose 102 mg/dL (83-110); Magnesium 2.2 mg/dL (1.6-2.6); Protein, Total 5.3 g/dL (5.8-8.1); Sodium 137 mmol/L (136-145)
[2021-06-01 05:37] LABS: Band 6 % (5-11); Eosinophils 4 % (0-10); Lymphocytes 8 % (21-51); MDiff Complete? YES; Monocytes 10 % (0-10); Neutrophil 71 % (42-75)
[2021-06-01] MEDS: MEROPENEM 1 GM/50 ML 1 GM in Premix Bag 1 BAG IVPB SCH ×2 (05:51→15:25)
[2021-06-01] MEDS: Aspirin 325 MG TAB PO SCH (08:54)
[2021-06-01] MEDS: Senokot S 8.6-50 MG TAB PO SCH ×2 (08:54→21:13)
[2021-06-01] MEDS: Enoxaparin Sodium 100 MG/ML SYRINGE SC SCH ×2 (08:54→21:13)
[2021-06-01] MEDS ORDERED: Fentanyl CADD 100 ML ONE (16:21)
[2021-06-01] MEDS: VANCOMYCIN 1.75 GM/350 ML BAG 1.75 GM in Premix Bag 1 BAG IVPB SCH (17:05)
[2021-06-01] MEDS ORDERED: FLU VACC QS2021-22(65YR UP)/PF 240 MCG/0.7 ML SYRINGE IM ONE (19:45)
[2021-06-01] MEDS: Atorvastatin Calcium 40 MG TAB PER TUBE SCH (21:13)
[2021-06-01] MEDS: Scopolamine 1.5 mg/72 hour Patch TD SCH (21:14)
[2021-06-01] MEDS: Famotidine/PF 20 mg/2ml Vial SLOW IVP SCH (21:14)
[2021-06-01] MEDS: Propofol 1,000 MG/100 ML VIAL IV PRN (22:29)
[2021-06-02] MEDS ORDERED: Fentanyl CADD 100 ML ONE (01:40)
[2021-06-02] MEDS: Fentanyl CADD 100 ML IV SCH (01:44)
[2021-06-02 04:21] LABS: Hemoglobin 9.7 g/dL (14.0-18.0); Mean Corpuscular HGB CONC 31.6 g/dL (32.0-36.0); Mean Corpuscular Hemoglobin 27.9 pg (27.0-31.0); Mean Corpuscular Volume 88.3 fL (78.0-98.0); Mean Platelet Volume 7.6 fL (7.4-10.4); Platelet Count 156 thou/uL (130-400); RBC Distribution Width 14.8 % (11.5-14.5); Red Blood Cell (RBC) Count 3.46 mill/uL (4.70-6.10); White Blood Cell (WBC) Count 6.4 thou/uL (4.8-10.8)
[2021-06-02 04:39] LABS: ALT (SGPT) 21 U/L (8-55); AST (SGOT) 31 U/L (5-34); Albumin 2.7 g/dL (3.4-4.8); Alkaline Phosphatase 77 U/L (40-110); Anion Gap 11 mmol/L (10-20); BUN (Urea Nitrogen) 15 mg/dL (8.4-25.7); Bilirubin, Total 0.7 mg/dL (0.2-1.2); Calc. Creatinine Clearance 95 mL/min (70-130); Calcium 8.4 mg/dL (7.8-10.44); Carbon Dioxide 24 mmol/L (23-31); Chloride 107 mmol/L (98-107); Globulin 2.6 g/dL (2.4-3.5); Glucose 103 mg/dL (83-110); Protein, Total 5.3 g/dL (5.8-8.1); Sodium 137 mmol/L (136-145)
[2021-06-02] MEDS: MEROPENEM 1 GM/50 ML 1 GM in Premix Bag 1 BAG IVPB SCH (04:41)
[2021-06-02 05:14] LABS: Band 5 % (5-11); Eosinophils 2 % (0-10); Lymphocytes 11 % (21-51); MDiff Complete? YES; Monocytes 6 % (0-10); Neutrophil 76 % (42-75)
[2021-06-02] MEDS: Senokot S 8.6-50 MG TAB PO SCH ×2 (08:09→20:52)
[2021-06-02] MEDS: Enoxaparin Sodium 100 MG/ML SYRINGE SC SCH ×2 (08:10→20:58)
[2021-06-02] MEDS: Aspirin 325 MG TAB PO SCH (08:10)
[2021-06-02] MEDS ORDERED: Famotidine 20 MG TAB PO SCH ×2 (11:15→21:00)
[2021-06-02] MEDS ORDERED: MEROPENEM 1 GM/50 ML 1 GM in Premix Bag 1 BAG IVPB SCH (13:00)
[2021-06-02] MEDS ORDERED: Famotidine/PF 20 mg/2ml Vial SLOW IVP SCH ×2 (14:45→21:00)
[2021-06-02] MEDS ORDERED: cefTRIAXone\\ROCEPHIN 2 GM in Sodium Chloride 0.9% 100 ML IVPB SCH (15:00)
[2021-06-02 19:39] LABS: #Eosinphils 0.2 thou/uL (0.0-0.7); #Lymphocytes 0.7 thou/uL (1.20-3.40); #Monocytes 0.7 thou/uL (0.11-0.59); %Basophils 0.3 % (0.0-1.0); %Eosinophils 3.2 % (0.0-10.0); %Lymphocytes 8.8 % (21.0-51.0); %Monocytes 8.7 % (0.0-10.0); Hemoglobin 10.5 g/dL (14.0-18.0); Mean Corpuscular HGB CONC 33.1 g/dL (32.0-36.0); Mean Corpuscular Hemoglobin 29.3 pg (27.0-31.0); Mean Corpuscular Volume 88.4 fL (78.0-98.0); Mean Platelet Volume 7.1 fL (7.4-10.4); Platelet Count 172 thou/uL (130-400); RBC Distribution Width 14.8 % (11.5-14.5); White Blood Cell (WBC) Count 7.6 thou/uL (4.8-10.8)
[2021-06-02 19:50] LABS: INR-International Normal Ratio 1.1; PTT 40.2 sec (22.9-36.1); Prothrombin Time 14.2 sec (12.0-14.7)
[2021-06-02 19:55] LABS: ALT (SGPT) 25 U/L (8-55); AST (SGOT) 38 U/L (5-34); Albumin 3.1 g/dL (3.4-4.8); Alkaline Phosphatase 85 U/L (40-110); Anion Gap 15 mmol/L (10-20); BUN (Urea Nitrogen) 13 mg/dL (8.4-25.7); Bilirubin, Total 0.8 mg/dL (0.2-1.2); CK (CPK) 179 U/L (30-200); Calc. Creatinine Clearance 103 mL/min (70-130); Calcium 8.9 mg/dL (7.8-10.44); Carbon Dioxide 22 mmol/L (23-31); Chloride 107 mmol/L (98-107); Globulin 2.8 g/dL (2.4-3.5); Glucose 114 mg/dL (83-110); Potassium 4.5 mmol/L (3.5-5.1); Protein, Total 5.9 g/dL (5.8-8.1); Sodium 139 mmol/L (136-145)
[2021-06-02] MEDS ORDERED: Lorazepam 2 MG/ML VIAL SLOW IVP PRN ×2 (20:10→20:14)
[2021-06-02] MEDS ORDERED: Morphine 4 MG/ML VIAL SLOW IVP PRN (20:11)
[2021-06-02 20:16] LABS: CKMB 1.7 ng/mL (0-6.6)
[2021-06-02 20:26] VITALS: BP 137/63; TEMP 97.9
[2021-06-02] MEDS: Atorvastatin Calcium 40 MG TAB PER TUBE SCH (20:51)
== END 2021-06-02 23:09 | disposition hospice, inpatient (51) | DRG 871 ==
LOC: ERS 14:59 → CCU 15:57 → NEURO 06-02 16:45 → CCU 06-02 19:35 → NEURO 06-02 19:53
PROVIDERS: ADMIT Family Medicine; ATTEND Internal Medicine
PROC: 0D9670Z Drainage of Stomach with Drainage Device, Via Natural or Artificial Opening (ICD-10-PCS; principal; 2021-05-29)
PROC: 0BH17EZ Insertion of Endotracheal Airway into Trachea, Via Natural or Artificial Opening (ICD-10-PCS; 2021-05-29)
PROC: 5A1945Z Respiratory Ventilation, 24-96 Consecutive Hours (ICD-10-PCS; 2021-05-29)
PROC: 3E033XZ Introduction of Vasopressor into Peripheral Vein, Percutaneous Approach (ICD-10-PCS; 2021-05-29)
DX: A41.9 Sepsis, unspecified organism (principal); G93.41 Metabolic encephalopathy; I33.0 Acute and subacute infective endocarditis; J96.01 Acute respiratory failure with hypoxia; I61.1 Nontraumatic intracerebral hemorrhage in hemisphere, cortical; J18.9 Pneumonia, unspecified organism; R65.21 Severe sepsis with septic shock; I63.231 Cerebral infarction due to unspecified occlusion or stenosis of right carotid arteries; N17.9 Acute kidney failure, unspecified; E87.1 Hypo-osmolality and hyponatremia; I24.8 Other forms of acute ischemic heart disease; I69.954 Hemiplegia and hemiparesis following unspecified cerebrovascular disease affecting left non-dominant side; R47.01 Aphasia; Z23 Encounter for immunization; Z66 Do not resuscitate; Z20.822 Contact with and (suspected) exposure to COVID-19; I48.91 Unspecified atrial fibrillation; E11.9 Type 2 diabetes mellitus without complications; E78.00 Pure hypercholesterolemia, unspecified; G93.89 Other specified disorders of brain; I25.10 Atherosclerotic heart disease of native coronary artery without angina pectoris; I12.9 Hypertensive chronic kidney disease with stage 1 through stage 4 chronic kidney disease, or unspecified chronic kidney disease; N18.9 Chronic kidney disease, unspecified; G47.33 Obstructive sleep apnea (adult) (pediatric); D63.1 Anemia in chronic kidney disease; R29.703 NIHSS score 3; Z88.1 Allergy status to other antibiotic agents; Z88.8 Allergy status to other drugs, medicaments and biological substances; Z79.82 Long term (current) use of aspirin; Z79.899 Other long term (current) drug therapy; Z79.01 Long term (current) use of anticoagulants; Z95.5 Presence of coronary angioplasty implant and graft; Z85.038 Personal history of other malignant neoplasm of large intestine; Z78.1 Physical restraint status; Z95.2 Presence of prosthetic heart valve; Z82.3 Family history of stroke; Z82.49 Family history of ischemic heart disease and other diseases of the circulatory system; E78.5 Hyperlipidemia, unspecified
CPT/HCPCS: 31500; 36415; 36416; 36600; 51702; 70450; 70496; 70498; 70551; 71045; 80053; 80202; 80306; 80307; 81003; 82140; 82550; 82553; 82805; 83605; 83735; 83880; 84100; 84443; 84484; 85007; 85025; 85027; 85610; 85730; 87040; 87070; 87086; 87205; 90471; 90662; 90732; 93005; 93306; 94002; 94003; 94640; 95712; 95819; 95957; 96365; 96366; 96368; 96375; 99292; G0008; G0009; J0696; J1650; J2060; J2185; J2250; J2270; J2310; J2704; J3010; J3370; J3490; J7050; J7620; Q9967; S0028; U0002

== ENCOUNTER 2021-06-02 23:09 | Inpatient (IN) | payer MEDICARE, OTHER ==
[2021-06-02 23:33] VITALS: BMI 27.4
[2021-06-02] MEDS ORDERED: Ondansetron PF 4 MG/2 ML Vial IVP PRN (23:45)
[2021-06-03] MEDS: Lorazepam 2 MG/ML VIAL SLOW IVP SCH ×6 (00:27→20:46)
[2021-06-03] MEDS: Scopolamine 1.5 mg/72 hour Patch TOP SCH (00:27)
[2021-06-03] MEDS: Morphine 4 MG/ML VIAL SLOW IVP SCH ×7 (02:22→23:51)
[2021-06-03] MEDS ORDERED: Morphine 4 MG/ML VIAL SLOW IVP SCH (15:00)
[2021-06-03] MEDS ORDERED: Morphine 4 MG/ML VIAL SLOW IVP PRN (18:00)
[2021-06-04] MEDS: Lorazepam 2 MG/ML VIAL SLOW IVP SCH ×6 (00:51→21:18)
[2021-06-04] MEDS: Morphine 4 MG/ML VIAL SLOW IVP SCH ×12 (01:28→23:59)
[2021-06-05] MEDS: Lorazepam 2 MG/ML VIAL SLOW IVP SCH ×6 (00:57→20:04)
[2021-06-05] MEDS: Morphine 4 MG/ML VIAL SLOW IVP SCH ×11 (01:57→22:07)
[2021-06-06] MEDS: Lorazepam 2 MG/ML VIAL SLOW IVP SCH ×6 (00:25→20:37)
[2021-06-06] MEDS: Morphine 4 MG/ML VIAL SLOW IVP SCH ×12 (00:25→22:05)
[2021-06-06] MEDS: Scopolamine 1.5 mg/72 hour Patch TOP SCH (00:25)
[2021-06-06] MEDS: Acetaminophen 650 MG Suppository PR PRN (20:38)
[2021-06-07] MEDS: Morphine 4 MG/ML VIAL SLOW IVP SCH ×12 (00:02→21:54)
[2021-06-07] MEDS: Lorazepam 2 MG/ML VIAL SLOW IVP SCH ×6 (00:02→20:04)
[2021-06-07] MEDS: Acetaminophen 650 MG Suppository PR PRN ×2 (08:13→20:04)
[2021-06-08] MEDS: Lorazepam 2 MG/ML VIAL SLOW IVP SCH ×6 (00:09→21:02)
[2021-06-08] MEDS: Morphine 4 MG/ML VIAL SLOW IVP SCH ×11 (00:09→22:00)
[2021-06-08] MEDS: Acetaminophen 650 MG Suppository PR PRN (15:38)
[2021-06-08] MEDS: Scopolamine 1.5 mg/72 hour Patch TOP SCH (23:15)
[2021-06-09] MEDS: Morphine 4 MG/ML VIAL SLOW IVP SCH ×12 (00:07→22:21)
[2021-06-09] MEDS: Lorazepam 2 MG/ML VIAL SLOW IVP SCH ×6 (01:07→21:05)
[2021-06-09] MEDS: Acetaminophen 650 MG Suppository PR PRN ×2 (09:15→15:56)
[2021-06-10] MEDS: Morphine 4 MG/ML VIAL SLOW IVP SCH ×13 (00:17→23:55)
[2021-06-10] MEDS: Lorazepam 2 MG/ML VIAL SLOW IVP SCH ×6 (01:01→21:08)
[2021-06-10] MEDS: Acetaminophen 650 MG Suppository PR PRN (20:17)
[2021-06-11] MEDS: Lorazepam 2 MG/ML VIAL SLOW IVP SCH ×6 (01:01→21:13)
[2021-06-11] MEDS: Morphine 4 MG/ML VIAL SLOW IVP SCH ×11 (02:55→22:18)
[2021-06-11] MEDS: Acetaminophen 650 MG Suppository PR PRN ×3 (08:40→21:13)
[2021-06-12] MEDS: Morphine 4 MG/ML VIAL SLOW IVP SCH ×6 (00:24→10:07)
[2021-06-12] MEDS: Scopolamine 1.5 mg/72 hour Patch TOP SCH (00:24)
[2021-06-12] MEDS: Lorazepam 2 MG/ML VIAL SLOW IVP SCH ×3 (01:08→09:06)
[2021-06-12 08:28] VITALS: TEMP 103.1
[2021-06-12] MEDS: Acetaminophen 650 MG Suppository PR PRN (09:05)
[2021-06-12 10:30] VITALS: BP 50/40
== END 2021-06-12 15:42 | disposition expired | DRG 951 ==
LOC: ONC 23:09
PROVIDERS: ADMIT Family Medicine; ATTEND Family Medicine
DX: Z51.5 Encounter for palliative care (principal); I63.9 Cerebral infarction, unspecified; I61.9 Nontraumatic intracerebral hemorrhage, unspecified; Z20.822 Contact with and (suspected) exposure to COVID-19; Z66 Do not resuscitate; E11.9 Type 2 diabetes mellitus without complications; I10 Essential (primary) hypertension; Z95.2 Presence of prosthetic heart valve; Z88.1 Allergy status to other antibiotic agents; Z88.8 Allergy status to other drugs, medicaments and biological substances; Z79.82 Long term (current) use of aspirin; Z79.899 Other long term (current) drug therapy; Z79.01 Long term (current) use of anticoagulants
CPT/HCPCS: J2060; J2270